=== PATIENT | male | born 1935 | race Caucasian/White ===

== ENCOUNTER 2016-06-08 10:51 | Day surgery (SDC) | payer MEDICARE, MEDICAID ==
--- NOTE | 2016-06-08 11:56 | RAD ---
ANKLE-LEFT 3 VIEW COMPARISON: None HISTORY: Patient slipped on the ice today. Left ankle pain. Initial encounter. FINDINGS: Views: Left ankle AP, mortise, lateral. Bones: Nondisplaced transverse fracture of the medial malleolus. Mildly displaced oblique fracture of the distal fibula Joints: Normal. Soft tissues: Swelling at the left ankle. IMPRESSION: Bimalleolar fracture of the left ankle, nondisplaced transverse at the medial malleolus, mildly displaced oblique fracture of the distal fibula diaphysis.
[2016-06-08] MEDS ORDERED: MAGNESIUM HYDROXIDE 30 ML UDCUP PO PRN (15:11)
[2016-06-08] MEDS ORDERED: SODIUM CHLORIDE 0.9% 100 ML IV PRN (15:11)
[2016-06-08] MEDS ORDERED: BLISTEX LIPSTICK 1 EACH TP PRN (15:11)
[2016-06-08] MEDS ORDERED: ACETAMINOPHEN 325 MG TABLET PO PRN (15:11)
[2016-06-08] MEDS ORDERED: MENTHOL/CETYLPYRD 1 EACH LOZENGE PO PRN (15:11)
[2016-06-08] MEDS ORDERED: BISACODYL 10 MG SUP PR PRN (15:11)
[2016-06-08] MEDS ORDERED: BISACODYL 5 MG TABLET.EC PO PRN (15:11)
[2016-06-08] MEDS ORDERED: NITROGLYCERIN 0.4 MG/TAB.SUBL BOT SL PRN (15:13)
[2016-06-08] MEDS ORDERED: ONDANSETRON 4 MG/2ML 2 ML VIAL IV PRN (15:13)
[2016-06-08 16:37] LABS: HEMATOCRIT 40.6 % (32.0-52.0); HEMOGLOBIN 13.5 gm/l (14.0-18.0); MEAN CELL VOLUME 89.8 fl (80.0-94.0); MEAN CORPUSCULAR HEMOGLOBIN 29.9 pg (27.0-31.0); MEAN CORPUSCULAR HGB CONC 33.3 g/dl (33.0-37.0); RED CELL DISTRIBUTION WIDTH 13.4 % (11.5-14.5)
[2016-06-08 16:44] VITALS: BMI 22.4
[2016-06-08 16:54] LABS: CALCIUM 9.4 mg/dL (8.6-10.3)
--- NOTE | 2016-06-08 17:31 | HP ---
DAVID AMAYA [id number] ADMIT DATE: 06/08/2016 CHIEF COMPLAINT: Ankle injury. 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 Today he was out in the [place] with his friend cutting wood when he slipped and fell, and suffered an ankle injury. He was brought to the emergency room for evaluation and found to have a bimalleolar fracture that was closed. He had no other injuries. He is feeling well otherwise. Given his underlying dementia it was felt it was unsafe to send him home. He has been referred to observation by the Hospitalist Service to facilitate an orthopedic consult and to facilitate appropriate placement. REVIEW OF SYSTEMS: No headache, no visual symptoms and no difficulty swallowing. No chest pain, shortness of breath or heart palpitations. No nausea, vomiting or diarrhea. No recent bowel or bladder dysfunction. No recent fevers or chills. PAST MEDICAL HISTORY: 1. Alzheimer's dementia. 2. Hypertension. 3. Hyperlipidemia. 4. Stable CAD. He has a history of a coronary artery bypass back in 06/2008. His last Lexiscan was just over a year ago in February of 2015 and was within normal limits, with an ejection fraction of 50%. 5. History of recurrent syncope that had been fully worked-up by both neurology and cardiology over the years. He has been taken-off most of this blood pressure medications and Beta blockers, with resolution. 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 7. History of hyperglycemia, but no diagnosis of diabetes. 8. Hyperlipidemia. PAST SURGICAL HISTORY: 1. CABG on 10/19/2008. 2. Surgery for a chainsaw injury to the left upper chest in the . SOCIAL HISTORY: He lives alone. He has a couple of friends who check in on him fairly frequently and who he cuts wood with. His living situation is described in the chart as "tenuous", though he has been fairly stable there for quite some time. He is exceedingly physically active, cutting large amounts of firewood as noted above. No alcohol, tobacco or drug use. ALLERGIES: Codeine. CURRENT MEDICATIONS: 1. Neurontin 300 mg by mouth at bedtime. 2. Aspirin 81 mg by mouth every day. 3. Atorvastatin 10 mg by mouth every day. 4. Isosorbide mononitrate ER 30 mg by mouth every day. 5. Nitroglycerin 0.4 mg sublingual every five minutes as needed for chest pain. CODE STATUS: DNR/DNI. OBJECTIVE: VITAL SIGNS: Vitals are stable. He is afebrile. GENERAL: A thin, spry, bright-eyed, elderly gentleman. He is sitting up in bed, alert and very talkative. He is in no distress whatsoever. HEENT: Normocephalic, atraumatic. TMs are clear. Extraocular muscles intact. Oropharynx is most. NECK: Supple. No JVD. LUNGS: Clear. HEART: Regular. ABDOMEN: Soft. EXTREMITIES: He is in a posterior splint on the left foot/ankle. NEUROVASCULAR: He is neurovascularly intact. Capillary refill is less than two seconds. There is a shallow abrasion over the right domínguez. Otherwise no injuries. No edema and no other skin lesions. LABS: None. ASSESSMENT: 1. Ground-level fall, with left-sided bimalleolar fracture, with no other injuries. 2. Underlying dementia appears stable at baseline. 3. Stable CAD, with no evidence of ACS. 4. Hypertension, not on any medications due to history of syncope. PLAN: I have referred him to observation. Orthopedics will consult when available. I anticipate that he will not require immediate surgery, though he may in the next week or so. Supportive care, with medications as needed for pain and nausea. We will let PT and OT evaluate him to see what kind of functional capability he will have and will search for the appropriate placement. DVT prophylaxis is not indicated. Further care is dictated by clinical course. cc: Dr. Leroy Shah
[2016-06-08 18:44] LABS: URINE BILIRUBIN NEGATIVE (NEGATIVE); URINE BLOOD NEGATIVE (NEGATIVE); URINE GLUCOSE (UA) NEGATIVE (NEGATIVE); URINE LEUKOCYTE ESTERASE NEGATIVE (NEGATIVE); URINE NITRITE NEGATIVE (NEGATIVE); URINE PROTEIN NEGATIVE (NEGATIVE); URINE UROBILINOGEN NORMAL (0-1 mg/dl)
[2016-06-08 18:45] LABS: URINE COLOR YELLOW
[2016-06-08 18:46] LABS: URINE APPEARANCE CLEAR
[2016-06-08] MEDS: GABAPENTIN 300 MG CAPSULE PO SCH (20:11)
[2016-06-08] MEDS: HYDROCODONE/ACETAMINOPHEN 5/325MG TABLET PO PRN (20:11)
--- NOTE | 2016-06-08 22:38 | PDOC36 ---
Provider Note Note: Please see full Ortho Consult which is dictated: Summary: 81yr old male with a bimalleolar frx admitted for social reasons. I spoke to the patient and medical team. I think the patient will need a surgery to stabilize his ankle. Ideally within 10 days he would have an ORIF of the fracture. However, the patient's social situation may make it more likely that he might have to stay in the hospital. If his swelling decreases and the patient stays long enough then potentially we could do his surgery on this admission. I recommend NWB on the LLE and ASA for DVT prophylaxis with follow- up in orthopaedic office in 1 week.
[2016-06-09] MEDS: HYDROCODONE/ACETAMINOPHEN 5/325MG TABLET PO PRN ×3 (01:41→20:45)
[2016-06-09] MEDS ORDERED: ASPIRIN (ENTERIC COATED) 81 MG TABLET.EC PO SCH ×2 (09:00→12:22)
[2016-06-09] MEDS: ISOSORBIDE MONONITRATE 30 MG TAB.SR PO SCH (09:55)
[2016-06-09] MEDS: ATORVASTATIN CALCIUM 10 MG TABLET PO SCH (09:55)
--- NOTE | 2016-06-09 12:34 | PDOC43 ---
- Subjective Chief Complaint: Left ankle injury C/o pain in left ankle, denies other symptoms. - Objective Vital Signs Temperature 97.4 F 06/09/16 07:50 Pulse Rate 82 06/09/16 07:50 Respiratory Rate 16 06/09/16 09:20 Blood Pressure 125/75 06/09/16 07:50 O2 Saturation by Pulse Oximetry 97 06/09/16 07:50 Oxygen Delivery Method Room Air Oxygen Flow Rate 0 Intake and Output 06/08/16 06/09/16 06/10/16 06:59 06:59 06:59 Intake Total 1400 Output Total 1775 Balance -375 General: Alert, Cooperative, Mild Distress, No Oriented x3 HEENT: Mucous membr. moist/pink Lungs: Clear to Auscultation Bilaterally Cardiovascular: Regular Rate and Rhythm Abdomen: Soft, Normal Bowel Sounds, No Tenderness, No Masses Extremities: Normal Pulses (right foot), Other (left ankle and foot splinted, great toe with brisk cap. refill), No Edema Skin: Normal Color Neurological: Normal Speech Laboratory 06/08/16 16:36 06/08/16 16:36 06/08/16 16:36 RBC 4.52 L Current Medications: Current meds reviewed in EMR. - Problems: Assessment/Plan (1) Ankle fracture, bimalleolar, closed Qualifiers: Encounter type: initial encounter Laterality: left Qualifier Code: (S82.842A) Displaced bimalleolar fracture of left lower leg, initial encounter for closed fracture Status: Acute Assessment/Plan: Will need ORIF when swelling goes down. (2) Dementia Qualifiers: Dementia type: Alzheimer's disease Alzheimer's disease onset: unspecified onset Dementia behavioral disturbance: without behavioral disturbance Qualifier Code: (G30.9) Alzheimer's disease, unspecified Status: Chronic Assessment/Plan: Very poor score on SLUMS exam today. Care management looking into guardianship. (3) CAD (coronary artery disease) Qualifiers: Coronary Disease-Associated Artery/Lesion type: [place] artery [place] vs. transplanted heart: [place] heart Associated angina: with unspecified angina Qualifier Code: (I25.119) Atherosclerotic heart disease of [place] coronary artery with unspecified angina pectoris Status: Chronic Assessment/Plan: Stable, no complaints. (4) HTN (hypertension) Status: Chronic Assessment/Plan: Stable. VTE Prophylaxis: mechanical and ASA. Disposition: Unclear if he will go to SNF/ICF or just remain here until he can have surgery on his ankle.
[2016-06-09] MEDS: GABAPENTIN 300 MG CAPSULE PO SCH (20:45)
[2016-06-10] MEDS: HYDROCODONE/ACETAMINOPHEN 5/325MG TABLET PO PRN (02:22)
[2016-06-10] MEDS: ISOSORBIDE MONONITRATE 30 MG TAB.SR PO SCH (10:40)
[2016-06-10] MEDS: ATORVASTATIN CALCIUM 10 MG TABLET PO SCH (10:40)
[2016-06-10] MEDS: ASPIRIN (ENTERIC COATED) 325 MG TABLET.EC PO SCH (11:06)
--- NOTE | 2016-06-10 12:56 | PDOC43 ---
- Subjective Chief Complaint: Left ankle injury Subjective: Reports Pain Tolerable, Reports Tolerating Diet Well, Denies Shortness of Breath, Denies Cough, Denies Chest Pain, Denies Fever - Objective Vital Signs Temperature 97.6 F 06/10/16 08:00 Pulse Rate 83 06/10/16 08:00 Respiratory Rate 18 06/10/16 10:40 Blood Pressure 138/97 06/10/16 08:00 O2 Saturation by Pulse Oximetry 95 06/10/16 08:00 Oxygen Delivery Method Room Air Oxygen Flow Rate 0 Intake and Output 06/09/16 06/10/16 06/11/16 06:59 06:59 06:59 Intake Total 1400 980 Output Total 1775 385 Balance -375 595 General: Alert, Cooperative, No Acute Distress HEENT: Mucous membr. moist/pink Lungs: Clear to Auscultation Bilaterally Cardiovascular: Regular Rate and Rhythm Abdomen: Soft, Normal Bowel Sounds, Non-Distended, No Tenderness Extremities: No Edema (except for area of left ankle fracture which is covered in NAKIA bandage with splint) Laboratory 06/08/16 16:36 06/08/16 16:36 Current Medications: Current meds reviewed in EMR. - Problems: Assessment/Plan (1) Ankle fracture, bimalleolar, closed Qualifiers: Encounter type: initial encounter Laterality: left Qualifier Code: (S82.842A) Displaced bimalleolar fracture of left lower leg, initial encounter for closed fracture Status: Acute Assessment/Plan: Will need ORIF when swelling goes down. (2) Dementia Qualifiers: Dementia type: Alzheimer's disease Alzheimer's disease onset: unspecified onset Dementia behavioral disturbance: without behavioral disturbance Qualifier Code: (G30.9) Alzheimer's disease, unspecified Status: Chronic Assessment/Plan: Very poor score on SLUMS exam yesterday(). Care management looking into guardianship. (3) CAD (coronary artery disease) Qualifiers: Coronary Disease-Associated Artery/Lesion type: [place] artery [place] vs. transplanted heart: [place] heart Associated angina: with unspecified angina Qualifier Code: (I25.119) Atherosclerotic heart disease of [place] coronary artery with unspecified angina pectoris Status: Chronic Assessment/Plan: Stable, no complaints. (4) HTN (hypertension) Qualifiers: Hypertension type: essential hypertension Qualifier Code: (I10) Essential (primary) hypertension Status: Chronic Assessment/Plan: Stable. VTE Prophylaxis: mechanical and ASA. Disposition: Unclear if he will go to SNF/ICF or just remain here until he can have surgery on his ankle.
[2016-06-10] MEDS: GABAPENTIN 300 MG CAPSULE PO SCH (20:07)
[2016-06-11] MEDS: HYDROCODONE/ACETAMINOPHEN 5/325MG TABLET PO PRN ×3 (05:03→23:03)
[2016-06-11] MEDS: ASPIRIN (ENTERIC COATED) 325 MG TABLET.EC PO SCH (08:52)
[2016-06-11] MEDS: ISOSORBIDE MONONITRATE 30 MG TAB.SR PO SCH (08:52)
[2016-06-11] MEDS: ATORVASTATIN CALCIUM 10 MG TABLET PO SCH (08:52)
--- NOTE | 2016-06-11 10:28 | PDOC43 ---
- Subjective Chief Complaint: Left ankle injury Subjective: Reports Pain Tolerable, Reports Tolerating Diet Well, Reports Other (no behavioral problems) - Objective Vital Signs Temperature 97.8 F 06/11/16 06:52 Pulse Rate 85 06/11/16 06:52 Respiratory Rate 18 06/11/16 08:07 Blood Pressure 146/89 06/11/16 06:52 O2 Saturation by Pulse Oximetry 96 06/11/16 06:52 Oxygen Delivery Method Room Air Oxygen Flow Rate 0 Intake and Output 06/10/16 06/11/16 06/12/16 06:59 06:59 06:59 Intake Total 980 1470 Output Total 385 53 Balance 595 1417 General: Alert, Cooperative, No Acute Distress HEENT: Mucous membr. moist/pink Lungs: Clear to Auscultation Bilaterally Cardiovascular: Regular Rate and Rhythm Abdomen: Soft, Normal Bowel Sounds, Non-Distended, No Tenderness Extremities: Other (left lower leg elevated and splinted(deferred to ortho() Laboratory 06/08/16 16:36 06/08/16 16:36 Current Medications: Current meds reviewed in EMR. - Problems: Assessment/Plan (1) Ankle fracture, bimalleolar, closed Qualifiers: Encounter type: initial encounter Laterality: left Qualifier Code: (S82.842A) Displaced bimalleolar fracture of left lower leg, initial encounter for closed fracture Status: Acute Assessment/Plan: Will need ORIF when swelling goes down. (2) Dementia Qualifiers: Dementia type: Alzheimer's disease Alzheimer's disease onset: unspecified onset Dementia behavioral disturbance: without behavioral disturbance Qualifier Code: (G30.9) Alzheimer's disease, unspecified Status: Chronic Assessment/Plan: Very poor score on SLUMS exam yesterday(). Care management looking into guardianship. (3) CAD (coronary artery disease) Qualifiers: Coronary Disease-Associated Artery/Lesion type: [place] artery [place] vs. transplanted heart: [place] heart Associated angina: with unspecified angina Qualifier Code: (I25.119) Atherosclerotic heart disease of [place] coronary artery with unspecified angina pectoris Status: Chronic Assessment/Plan: Stable, no complaints. (4) HTN (hypertension) Qualifiers: Hypertension type: essential hypertension Qualifier Code: (I10) Essential (primary) hypertension Status: Chronic Assessment/Plan: Stable. Consider beta finn if becomes elevated VTE Prophylaxis: mechanical and ASA. Disposition: Unclear if he will go to SNF/ICF or just remain here until he can have surgery on his ankle.
--- NOTE | 2016-06-11 18:53 | PDOC43 ---
- Subjective Findings: No new complaints, no new issues. Patient tolerating sling elevation of his left leg. Pain controlled. Subjective: Reports Flatus, Reports Pain Tolerable - Objective Vital Signs Temperature 98.1 F 06/11/16 16:02 Pulse Rate 91 06/11/16 16:02 Respiratory Rate 18 06/11/16 16:02 Blood Pressure 139/89 06/11/16 16:02 O2 Saturation by Pulse Oximetry 98 06/11/16 16:02 Oxygen Delivery Method Room Air Oxygen Flow Rate 0 Laboratory 06/08/16 16:36 06/08/16 16:36 06/11/16 11:40 POC Capillary Glucose 114 H Active Medication Orders Category Date Time Status Acetaminophen [Tylenol] Med 06/08/16 15:11 Active 650 mg PO Q6H PRN Aspirin (Enteric Coated) [Ecotrin] Med 06/10/16 10:45 Active 325 mg PO DAILY Atorvastatin Calcium [Lipitor] Med 06/09/16 09:00 Active 10 mg PO DAILY Gabapentin [Neurontin] Med 06/08/16 21:00 Active 300 mg PO BEDTIME Hydrocodone Bit/Acetaminophen [[place] 5/325] Med 06/11/16 16:14 Active 1 tab PO Q4H PRN Isosorbide Mononitrate [Imdur] Med 06/09/16 09:00 Active 30 mg PO DAILY Lip [place] [Blistex] Med 06/08/16 15:11 Active 1 each TP PRN PRN Magnesium Hydroxide [Milk of Magnesia] Med 06/08/16 15:11 Active 30 ml PO DAILY PRN Menthol/Cetylpyridinium [Cepacol] Med 06/08/16 15:11 Active 1 each PO PRN PRN Nitroglycerin [Nitrostat] Med 06/08/16 15:13 Active 0.4 mg SL Q5M PRN Ondansetron 4 mg/2ml Vial [Zofran] Med 06/08/16 15:13 Active 4 mg IV Q3H PRN Sodium Chloride 0.9% 100 ml Med 06/08/16 15:11 Active IV PRN Sodium Chloride 0.9% Flush [Normal Saline 10ml Flush] Med 06/08/16 15:11 Active 10 - 50 ml IV PRN PRN Sodium Chloride 0.9% Flush [Normal Saline 10ml Flush] Med 06/11/16 17:00 Active 10 ml IV Q8HR Intake and Output 06/09/16 06/10/16 06/11/16 23:59 23:59 23:59 Intake Total 9294 689 3230 Output Total 1095 68 Balance 815 113 5427 General: Afebrile, No Acute Distress HEENT: EOMI Lungs: Normal Air Movement Skin: Normal Color, Warm, Dry Neurological: Grossly Intact, No Oriented x 4 - Left Lower Extremity Incision: Dressing Clean/Dry/Intact Gross Sensation to Light Touch: Present: Deep Peroneal Nerve, Superficial Peroneal Nerve, Medial Plantar Nerve, Lateral Plantar Nerve, Sural Nerve, Saphenous Nerve Capillary Refill: < 3 Seconds - Problems (1) Ankle fracture, bimalleolar, closed Qualifiers: Encounter type: initial encounter Laterality: left Qualifier Code: (S82.842A) Displaced bimalleolar fracture of left lower leg, initial encounter for closed fracture Status: Acute Assessment/Plan: HD#3 for closed L shaggy ankle fracture 1. Physical Therapy: NWB LLE, up in stockinette sling whenever in bed 2. Pain Control: adequate on current meds 3. DVT Prophylaxis: per hospitalist 4. Disposition: likely will do ORIF this hospitalization, then d/c to SNF for rehab 5. Medical Issues: stable, hospitalist primary Young Jolly MD
[2016-06-11] MEDS: GABAPENTIN 300 MG CAPSULE PO SCH (23:02)
[2016-06-11] MEDS: QUETIAPINE FUMARATE 25 MG TABLET PO SCH (23:02)
[2016-06-12] MEDS ORDERED: IV START KIT ONE (00:19)
[2016-06-12 06:11] LABS: HEMATOCRIT 45.2 % (32.0-52.0); HEMOGLOBIN 14.8 gm/l (14.0-18.0); MEAN CORPUSCULAR HEMOGLOBIN 29.5 pg (27.0-31.0); MEAN CORPUSCULAR HGB CONC 32.7 g/dl (33.0-37.0); RED CELL DISTRIBUTION WIDTH 12.9 % (11.5-14.5)
[2016-06-12 06:36] LABS: CALCIUM 10.2 mg/dL (8.6-10.3)
[2016-06-12] MEDS: ATORVASTATIN CALCIUM 10 MG TABLET PO SCH (09:21)
[2016-06-12] MEDS: ASPIRIN (ENTERIC COATED) 325 MG TABLET.EC PO SCH (09:21)
[2016-06-12] MEDS: ISOSORBIDE MONONITRATE 30 MG TAB.SR PO SCH (09:21)
--- NOTE | 2016-06-12 10:50 | PDOC43 ---
- Subjective Findings: Pt seen his morning. He is sleeping and some what hard to wake. His nurse states he had a near syncopal episode earlier with PT. Pain seems manageable. Subjective: Reports Pain Tolerable, Denies Chest Pain, Denies Shortness of Breath, Denies Nausea, Denies Vomiting - Objective Vital Signs Temperature 97.6 F 06/12/16 07:55 Pulse Rate 87 06/12/16 10:10 Respiratory Rate 18 06/12/16 08:00 Blood Pressure 124/89 06/12/16 10:10 O2 Saturation by Pulse Oximetry 93 06/12/16 10:10 Oxygen Delivery Method Room Air Oxygen Flow Rate 0 Laboratory 06/12/16 05:30 06/12/16 05:30 06/12/16 06/11/16 05:30 11:40 MCHC 32.7 L Anion Gap 17 H Estimated GFR 58 L POC Capillary Glucose 114 H Active Medication Orders Category Date Time Status Acetaminophen [Tylenol] Med 06/08/16 15:11 Active 650 mg PO Q6H PRN Aspirin (Enteric Coated) [Ecotrin] Med 06/10/16 10:45 Active 325 mg PO DAILY Atorvastatin Calcium [Lipitor] Med 06/09/16 09:00 Active 10 mg PO DAILY Gabapentin [Neurontin] Med 06/08/16 21:00 Active 300 mg PO BEDTIME Hydrocodone Bit/Acetaminophen [[place] 5/325] Med 06/11/16 16:14 Active 1 tab PO Q4H PRN Isosorbide Mononitrate [Imdur] Med 06/09/16 09:00 Active 30 mg PO DAILY Lip [place] [Blistex] Med 06/08/16 15:11 Active 1 each TP PRN PRN Magnesium Hydroxide [Milk of Magnesia] Med 06/08/16 15:11 Active 30 ml PO DAILY PRN Menthol/Cetylpyridinium [Cepacol] Med 06/08/16 15:11 Active 1 each PO PRN PRN Nitroglycerin [Nitrostat] Med 06/08/16 15:13 Active 0.4 mg SL Q5M PRN Ondansetron 4 mg/2ml Vial [Zofran] Med 06/08/16 15:13 Active 4 mg IV Q3H PRN Quetiapine Fumarate [Seroquel] Med 06/11/16 21:45 Active 12.5 mg PO BEDTIME Sodium Chloride 0.9% 100 ml Med 06/08/16 15:11 Active IV PRN Sodium Chloride 0.9% Flush [Normal Saline 10ml Flush] Med 06/08/16 15:11 Active 10 - 50 ml IV PRN PRN Sodium Chloride 0.9% Flush [Normal Saline 10ml Flush] Med 06/11/16 17:00 Active 10 ml IV Q8HR Intake and Output 06/10/16 06/11/16 06/12/16 23:59 23:59 23:59 Intake Total 480 1570 100 Output Total 68 Balance 412 1570 100 General: Afebrile HEENT: Atraumatic Lungs: Normal Air Movement Abdomen: Non-Distended Skin: Normal Color Neurological: Other - Left Lower Extremity Incision: Erythema, Ecchymosis, Other (His splint is removed with the help of his nurse. He has a FX blister medial (intact). Lateral side skin intact. Swelling is mild) Gross Sensation to Light Touch: Present: Deep Peroneal Nerve, Superficial Peroneal Nerve Capillary Refill: < 3 Seconds Motion: Gentle toe motion without pain. Calf soft Nt - Problems (1) Ankle fracture, bimalleolar, closed Qualifiers: Encounter type: initial encounter Laterality: left Qualifier Code: (S82.842A) Displaced bimalleolar fracture of left lower leg, initial encounter for closed fracture Status: Acute Assessment/Plan: HD#4 for closed L shaggy ankle fracture 1. Physical Therapy: NWB LLE, up in stockinette sling whenever in bed 2. Pain Control: adequate on current meds. Limit narcotics secondary to somnolence 3. DVT Prophylaxis: per hospitalist 4. Disposition: likely will do ORIF Sunday or per Dr. Jolly, then d /c to SNF for rehab 5. Medical Issues: stable, hospitalist primary
--- NOTE | 2016-06-12 11:57 | CONS ---
David AMAYA [id number] : 1935 ORTHOPEDIC CONSULTATION DATE OF ADMISSION: June 08, 2016 CHIEF COMPLAINT: "I fell in hurt my left ankle." HISTORY OF PRESENT ILLNESS: The patient is an 81-year-old male who lives alone, but has dementia who was cutting some wood when he slipped and fell resulting in closed bimalleolar ankle fracture. The patient was splinted in the emergency room. The patient was ultimately admitted to medicine because of this and his inability to bear weight and due to his living situation. I was asked to see the patient in consultation. The patient has pain in his ankle. He does have some insight into what occurred that he broke his ankle. However since he lives alone he does not have a lot of resources to help care for him outside of the hospital setting. The patient notes that he has not had recent falls. He has never had any fevers, chills, pneumonia, or any other medical problems. PAST MEDICAL: Significant for: 1. High blood pressure. 2. Hyperlipidemia. 3. Coronary artery disease. Having a bypass back in June of 1999. His ejection fraction is currently 50%. 4. He has a history of recurrent syncope being worked up by both neurology and cardiology. 5. He has hearing noises secondary to noise damage. 6. Alzheimer's dementia. PAST SURGICAL HISTORY: Significant for: 1. CABG in September of 2008. 2. A chainsaw injury to his left chest in the . SOCIAL HISTORY: The patient lives alone. He has friends that check on them frequently who the cuts would with and then donates the wood to local [employer] He does not smoke cigarettes. He does not drink alcohol. ALLERGIES: CODEINE. MEDICATIONS: 1. Aspirin 81 mg by mouth every day. 2. Neurontin 300 mg by mouth every night. 3. Atorvastatin 10 mg by mouth every day. PHYSICAL EXAM: GENERAL: The patient is alert and oriented times one. His general appearance is that he is a thin man, very talkative and is oriented to person and place. He was not clear on the time. HEENT: Extraocular movements are intact bilaterally. NECK: Is supple. LUNGS: Clear to auscultation. HEART: Regular rate. EXTREMITIES: Focused exam of his left lower extremity demonstrates capillary refill of less than 2 seconds. The posterior splint is in place. He has a moderate amount of swelling. He has gross toe flexion and toe extension. IMAGING: X-rays demonstrated bimalleolar fracture with a minimally spaced medial malleolus and they displaced the lateral malleolus. ASSESSMENT AND PLAN: The patient is an 81-year-old male who was admitted for social reasons with a closed bimalleolar fracture. At this point in time the patient does have some swelling. I suggested that if he is be admitted for his leg to be elevated as much as possible. Potentially this will help decrease the swelling. If he has to stay here for couple of days potentially the patient could have the patient's ankle fixed with an open reduction internal fixation during the stay, otherwise the acuity of this my recommendation would be for the patient to elevate his leg and to follow up with us within a week. We will arrange orthopedic follow-up for the patient and I recommend nonweightbearing on this website. Job [id number] cc: Palmira Rudd
[2016-06-12] MEDS ORDERED: PUMP TUBING ONE (12:12)
[2016-06-12] MEDS: SODIUM CHLORIDE 0.9% 1,000 ML IV SCH (12:17)
--- NOTE | 2016-06-12 13:30 | PDOC43 ---
- Subjective Chief Complaint: Left ankle injury/bimalleolar fx Patient reports doing ok, "just sleeping" Pain control appears to be ok. Nursing staff reports pt was spitting earlier. - Objective Vital Signs Temperature 97.6 F 06/12/16 07:55 Pulse Rate 87 06/12/16 10:10 Respiratory Rate 18 06/12/16 08:00 Blood Pressure 124/89 06/12/16 10:10 O2 Saturation by Pulse Oximetry 93 06/12/16 10:10 Oxygen Delivery Method Room Air Oxygen Flow Rate 0 Vital Signs Last 12 Hours Temp Pulse Resp BP Pulse Ox 06/12/16 10:10 87 124/89 93 06/12/16 09:55 124/89 93 06/12/16 08:00 18 06/12/16 07:55 97.6 F 80 18 136/99 97 06/12/16 02:00 16 Intake and Output 06/10/16 06/11/16 06/12/16 23:59 23:59 23:59 Intake Total 480 1570 100 Output Total 68 Balance 412 1570 100 General: Other (sleeping, but awakens normally.) HEENT: Atraumatic Lungs: Clear to Auscultation Bilaterally, Normal Air Movement Cardiovascular: Regular Rate and Rhythm Abdomen: Soft, Normal Bowel Sounds, Non-Distended, No Tenderness, No Rebounding , No Involuntary Guarding Extremities: Other (Left leg wrapped, elevated.) Neurological: Normal Speech Psych/Mental Status: Other (reported on SLUMS.) Laboratory 06/12/16 05:30 06/12/16 05:30 06/12/16 05:30 MCHC 32.7 L Anion Gap 17 H Estimated GFR 58 L Current Medications: Current meds reviewed in EMR. Active Medications Acetaminophen (Tylenol) 650 mg PO Q6H PRN PRN Reason: Pain or Temperature > 100.5 F Acetaminophen/Hydrocodone Bitart ([place] 5/325) 1 tab PO Q4H PRN PRN Reason: Pain Last Admin: 06/11/16 23:03 Dose: 1 tab Aspirin (Ecotrin) 325 mg PO DAILY [facility] Last Admin: 06/12/16 09:21 Dose: 325 mg Atorvastatin Calcium (Lipitor) 10 mg PO DAILY [facility] Last Admin: 06/12/16 09:21 Dose: 10 mg Benzocaine/Menthol (Cepacol) 1 each PO PRN PRN PRN Reason: Sore Throat Gabapentin (Neurontin) 300 mg PO BEDTIME [facility] Last Admin: 06/11/16 23:02 Dose: 300 mg Sodium Chloride (Sodium Chloride 0.9%) 100 mls @ 25 mls/hr IV PRN PRN PRN Reason: Flush Sodium Chloride (Sodium Chloride 0.9%) 1,000 mls @ 25 mls/hr IV .Q24H [facility] Last Admin: 06/12/16 12:17 Dose: 25 mls/hr Isosorbide Mononitrate (Imdur) 30 mg PO DAILY [facility] Last Admin: 06/12/16 09:21 Dose: 30 mg Magnesium Hydroxide (Milk Of Magnesia) 30 ml PO DAILY PRN PRN Reason: Constipation Nitroglycerin (Nitrostat) 0.4 mg SL Q5M PRN PRN Reason: Chest Pain Ondansetron HCl (Zofran) 4 mg IV Q3H PRN PRN Reason: Nausea/Vomiting Petrolatum/Paraffin/Mineral Oil (Blistex) 1 each TP PRN PRN PRN Reason: Dry and/or chapped lips Quetiapine Fumarate (Seroquel) 12.5 mg PO BEDTIME [facility] Last Admin: 06/11/16 23:02 Dose: 12.5 mg Sodium Chloride (Normal Saline 10ml Flush) 10 - 50 ml IV PRN PRN PRN Reason: IV Flush Last Admin: 06/12/16 12:17 Dose: 10 ml Sodium Chloride (Normal Saline 10ml Flush) 10 ml IV Q8HR [facility] Last Admin: 06/12/16 09:21 Dose: 10 ml - Problems: Assessment/Plan (1) Ankle fracture, bimalleolar, closed Qualifiers: Encounter type: initial encounter Laterality: left Qualifier Code: (S82.842A) Displaced bimalleolar fracture of left lower leg, initial encounter for closed fracture Status: Acute Assessment/Plan: Will need ORIF when swelling goes down. Ortho had indicated poss Wed or Th. Pain control appears good currently. (2) Dementia Qualifiers: Dementia type: Alzheimer's disease Alzheimer's disease onset: unspecified onset Dementia behavioral disturbance: without behavioral disturbance Qualifier Code: (G30.9) Alzheimer's disease, unspecified Status: Chronic Assessment/Plan: Very poor score on SLUMS exam (). Care management looking into guardianship. (3) CAD (coronary artery disease) Qualifiers: Coronary Disease-Associated Artery/Lesion type: [place] artery [place] vs. transplanted heart: [place] heart Associated angina: with unspecified angina Qualifier Code: (I25.119) Atherosclerotic heart disease of [place] coronary artery with unspecified angina pectoris Status: Chronic Assessment/Plan: Stable, no complaints. (4) HTN (hypertension) Qualifiers: Hypertension type: essential hypertension Qualifier Code: (I10) Essential (primary) hypertension Status: Chronic Assessment/Plan: Stable. Consider beta finn if becomes elevated. VTE Prophylaxis: mechanical and ASA. Disposition: Anticipating to remain here until he can have surgery on his ankle, later this week
[2016-06-12] MEDS: HYDROCODONE/ACETAMINOPHEN 5/325MG TABLET PO PRN (18:35)
[2016-06-12] MEDS: GABAPENTIN 300 MG CAPSULE PO SCH ×2 (20:48→21:02)
[2016-06-12] MEDS: QUETIAPINE FUMARATE 25 MG TABLET PO SCH ×2 (20:49→21:02)
[2016-06-13] MEDS: HYDROCODONE/ACETAMINOPHEN 5/325MG TABLET PO PRN ×2 (00:38→22:45)
[2016-06-13] MEDS: ATORVASTATIN CALCIUM 10 MG TABLET PO SCH (09:18)
[2016-06-13] MEDS: ISOSORBIDE MONONITRATE 30 MG TAB.SR PO SCH (09:18)
[2016-06-13] MEDS: ASPIRIN (ENTERIC COATED) 325 MG TABLET.EC PO SCH (09:18)
[2016-06-13] MEDS: SODIUM CHLORIDE 0.9% 1,000 ML IV SCH ×2 (11:10→21:54)
--- NOTE | 2016-06-13 11:28 | PDOC43 ---
- Subjective Findings: Pt seen today more awake than yesterday. No new complaints. Not having much pain unless the leg is moved. Subjective: Reports Pain Tolerable, Denies Chest Pain, Denies Shortness of Breath, Denies Nausea, Denies Vomiting, Denies Fever - Objective Vital Signs Temperature 98.4 F 06/13/16 08:38 Pulse Rate 83 06/13/16 08:38 Respiratory Rate 20 06/13/16 08:38 Blood Pressure 155/97 06/13/16 08:38 O2 Saturation by Pulse Oximetry 97 06/13/16 08:38 Oxygen Delivery Method Room Air Oxygen Flow Rate 0 Laboratory 06/12/16 05:30 06/12/16 05:30 Active Medication Orders Category Date Time Status Acetaminophen [Tylenol] Med 06/08/16 15:11 Active 650 mg PO Q6H PRN Aspirin (Enteric Coated) [Ecotrin] Med 06/10/16 10:45 Active 325 mg PO DAILY Atorvastatin Calcium [Lipitor] Med 06/09/16 09:00 Active 10 mg PO DAILY Gabapentin [Neurontin] Med 06/08/16 21:00 Active 300 mg PO BEDTIME Hydrocodone Bit/Acetaminophen [[place] 5/325] Med 06/11/16 16:14 Active 1 tab PO Q4H PRN Isosorbide Mononitrate [Imdur] Med 06/09/16 09:00 Active 30 mg PO DAILY Lip [place] [Blistex] Med 06/08/16 15:11 Active 1 each TP PRN PRN Magnesium Hydroxide [Milk of Magnesia] Med 06/08/16 15:11 Active 30 ml PO DAILY PRN Menthol/Cetylpyridinium [Cepacol] Med 06/08/16 15:11 Active 1 each PO PRN PRN Nitroglycerin [Nitrostat] Med 06/08/16 15:13 Active 0.4 mg SL Q5M PRN Ondansetron 4 mg/2ml Vial [Zofran] Med 06/08/16 15:13 Active 4 mg IV Q3H PRN Quetiapine Fumarate [Seroquel] Med 06/11/16 21:45 Active 12.5 mg PO BEDTIME Sodium Chloride 0.9% 1,000 ml Med 06/12/16 11:40 Active IV 25 mls/hr Sodium Chloride 0.9% 100 ml Med 06/08/16 15:11 Active IV PRN Sodium Chloride 0.9% Flush [Normal Saline 10ml Flush] Med 06/08/16 15:11 Active 10 - 50 ml IV PRN PRN Sodium Chloride 0.9% Flush [Normal Saline 10ml Flush] Med 06/11/16 17:00 Active 10 ml IV Q8HR Intake and Output 06/11/16 06/12/16 06/13/16 23:59 23:59 23:59 Intake Total 1570 484 457 Output Total 3 126 Balance 1570 481 331 General: Afebrile HEENT: Atraumatic Lungs: Normal Air Movement Abdomen: Soft, Non-Distended Skin: Normal Color Neurological: Alert - Left Lower Extremity Incision: Ecchymosis, Other (Swelling continues to improve.) Motor: Extensor Hallucis Longus: 3/5, Tibialis Anterior: 3/5, Gastrocnemius: 3/5 , Peroneals: 3/5, Quadriceps: 2/5 Gross Sensation to Light Touch: Present: Deep Peroneal Nerve, Superficial Peroneal Nerve Capillary Refill: < 3 Seconds Motion: Calf soft NT Knee rom with mild c/o of ankle pain - Problems (1) Ankle fracture, bimalleolar, closed Qualifiers: Encounter type: initial encounter Laterality: left Qualifier Code: (S82.842A) Displaced bimalleolar fracture of left lower leg, initial encounter for closed fracture Status: Acute Assessment/Plan: HD#5 for closed L shaggy ankle fracture 1. Physical Therapy: NWB LLE, up in stockinette sling whenever in bed 2. Pain Control: adequate on current meds. Limit narcotics secondary to somnolence 3. DVT Prophylaxis: per hospitalist 4. Disposition: Plan for ORIF Sunday or per Dr. Jolly, then d/c to SNF for rehab 5. Medical Issues: stable, hospitalist primary
--- NOTE | 2016-06-13 13:36 | PDOC43 ---
- Subjective Chief Complaint: Left ankle injury/bimalleolar fx Subjective: Reports Pain Tolerable, Reports Tolerating Diet Well, Denies Fever - Objective Vital Signs Temperature 98.4 F 06/13/16 08:38 Pulse Rate 83 06/13/16 08:38 Respiratory Rate 20 06/13/16 08:38 Blood Pressure 155/97 06/13/16 08:38 O2 Saturation by Pulse Oximetry 97 06/13/16 08:38 Oxygen Delivery Method Room Air Oxygen Flow Rate 0 Intake and Output 06/12/16 06/13/16 06/14/16 06:59 06:59 06:59 Intake Total 620 841 40 Output Total 3 126 Balance 620 838 -86 General: Alert, Cooperative, No Acute Distress HEENT: Mucous membr. moist/pink Lungs: Clear to Auscultation Bilaterally Cardiovascular: Regular Rate and Rhythm Abdomen: Soft, Normal Bowel Sounds, Non-Distended, No Tenderness Extremities: Edema (in left leg improving, has splint on left lower leg) Skin: Warm, Dry, Intact Laboratory 06/12/16 05:30 06/12/16 05:30 Current Medications: Current meds reviewed in EMR. - Problems: Assessment/Plan (1) Ankle fracture, bimalleolar, closed Qualifiers: Encounter type: initial encounter Laterality: left Qualifier Code: (S82.842A) Displaced bimalleolar fracture of left lower leg, initial encounter for closed fracture Status: Acute Assessment/Plan: Will need ORIF when swelling goes down. Ortho had indicated poss Wed or Th. Pain control appears good currently. (2) Dementia Qualifiers: Dementia type: Alzheimer's disease Alzheimer's disease onset: unspecified onset Dementia behavioral disturbance: without behavioral disturbance Qualifier Code: (G30.9) Alzheimer's disease, unspecified Status: Chronic Assessment/Plan: Very poor score on SLUMS exam (). Care management looking into SNF placement (3) CAD (coronary artery disease) Qualifiers: Coronary Disease-Associated Artery/Lesion type: [place] artery [place] vs. transplanted heart: [place] heart Associated angina: with unspecified angina Qualifier Code: (I25.119) Atherosclerotic heart disease of [place] coronary artery with unspecified angina pectoris Status: Chronic Assessment/Plan: Stable, no complaints. (4) HTN (hypertension) Qualifiers: Hypertension type: essential hypertension Qualifier Code: (I10) Essential (primary) hypertension Status: Chronic Assessment/Plan: Some elevation-start atenolol VTE Prophylaxis: mechanical and ASA. Disposition: Anticipating to remain here until he can have surgery on his ankle, later this week
[2016-06-13] MEDS: ATENOLOL 25 MG TABLET PO SCH (15:11)
[2016-06-13] MEDS: GABAPENTIN 300 MG CAPSULE PO SCH (22:44)
[2016-06-13] MEDS: QUETIAPINE FUMARATE 25 MG TABLET PO SCH (22:48)
[2016-06-13] MEDS ORDERED: SODIUM CHLORIDE 0.9% FLUSH 10 ML ONE (23:04)
[2016-06-13] MEDS ORDERED: IV START KIT ONE (23:04)
[2016-06-14] MEDS: HYDROCODONE/ACETAMINOPHEN 5/325MG TABLET PO PRN ×3 (03:27→22:25)
[2016-06-14] MEDS: SODIUM CHLORIDE 0.9% 1,000 ML IV SCH ×3 (06:35→22:25)
--- NOTE | 2016-06-14 06:59 | PDOC43 ---
- Subjective Chief Complaint: Left ankle injury/bimalleolar fx Subjective: Reports Pain Tolerable, Reports Tolerating Diet Well, Denies Fever - Objective Vital Signs Temperature 98.4 F 06/14/16 01:45 Pulse Rate 92 06/14/16 02:15 Respiratory Rate 16 06/14/16 02:00 Blood Pressure 161/93 06/14/16 02:15 O2 Saturation by Pulse Oximetry 100 06/14/16 02:15 Oxygen Delivery Method Room Air Oxygen Flow Rate 0 Intake and Output 06/12/16 06/13/16 06/14/16 06:59 06:59 06:59 Intake Total 620 841 532 Output Total 3 126 Balance 620 838 406 General: Alert, Cooperative, No Acute Distress HEENT: Mucous membr. moist/pink Lungs: Clear to Auscultation Bilaterally Cardiovascular: Regular Rate and Rhythm Abdomen: Soft, Normal Bowel Sounds, Non-Distended, No Tenderness Extremities: Edema (in left leg improving but remains splinted), Normal Cap Refill Laboratory 06/12/16 05:30 06/12/16 05:30 Current Medications: Current meds reviewed in EMR. - Problems: Assessment/Plan (1) Ankle fracture, bimalleolar, closed Qualifiers: Encounter type: initial encounter Laterality: left Qualifier Code: (S82.842A) Displaced bimalleolar fracture of left lower leg, initial encounter for closed fracture Status: Acute Assessment/Plan: Will need ORIF when swelling goes down. Ortho had indicated poss later today or Sunday Pain control appears good currently. (2) Dementia Qualifiers: Dementia type: Alzheimer's disease Alzheimer's disease onset: unspecified onset Dementia behavioral disturbance: without behavioral disturbance Qualifier Code: (G30.9) Alzheimer's disease, unspecified Status: Chronic Assessment/Plan: Very poor score on SLUMS exam (). Care management looking into SNF placement (3) CAD (coronary artery disease) Qualifiers: Coronary Disease-Associated Artery/Lesion type: [place] artery [place] vs. transplanted heart: [place] heart Associated angina: with unspecified angina Qualifier Code: (I25.119) Atherosclerotic heart disease of [place] coronary artery with unspecified angina pectoris Status: Chronic Assessment/Plan: Stable, no complaints. (4) HTN (hypertension) Qualifiers: Hypertension type: essential hypertension Qualifier Code: (I10) Essential (primary) hypertension Status: Chronic Assessment/Plan: Some elevation-started atenolol on 06/13 VTE Prophylaxis: mechanical and ASA. Disposition: Anticipating to remain here until he can have surgery on his ankle, later this week
[2016-06-14] MEDS: ISOSORBIDE MONONITRATE 30 MG TAB.SR PO SCH (08:25)
[2016-06-14] MEDS: ATENOLOL 25 MG TABLET PO SCH (08:25)
[2016-06-14] MEDS: ATORVASTATIN CALCIUM 10 MG TABLET PO SCH (13:52)
[2016-06-14] MEDS: ASPIRIN (ENTERIC COATED) 325 MG TABLET.EC PO SCH (13:52)
[2016-06-14] MEDS ORDERED: SODIUM CHLORIDE 0.9% FLUSH 10 ML ONE (20:33)
[2016-06-14] MEDS ORDERED: IV START KIT ONE ×2 (20:33→23:13)
[2016-06-14] MEDS: GABAPENTIN 300 MG CAPSULE PO SCH (22:25)
[2016-06-14] MEDS: QUETIAPINE FUMARATE 25 MG TABLET PO SCH (22:25)
[2016-06-15] MEDS: SODIUM CHLORIDE 0.9% 1,000 ML IV SCH ×3 (04:09→20:40)
[2016-06-15] MEDS: HYDROCODONE/ACETAMINOPHEN 5/325MG TABLET PO PRN ×2 (04:09→20:40)
[2016-06-15] MEDS: ATENOLOL 25 MG TABLET PO SCH (08:29)
[2016-06-15] MEDS: ISOSORBIDE MONONITRATE 30 MG TAB.SR PO SCH (08:29)
--- NOTE | 2016-06-15 08:45 | PDOC43 ---
- Subjective Chief Complaint: Left ankle injury/bimalleolar fx Patient reported to be fairly active last night, but not needing 1:1 or special medication. This am, resting with eyes closed, no c/o. - Objective Vital Signs Temperature 97.6 F 06/15/16 07:21 Pulse Rate 59 06/15/16 07:21 Respiratory Rate 18 06/15/16 07:21 Blood Pressure 185/69 06/15/16 07:21 O2 Saturation by Pulse Oximetry 99 06/15/16 07:21 Oxygen Delivery Method Room Air Oxygen Flow Rate 0 Vital Signs Last 12 Hours Temp Pulse Resp BP Pulse Ox 06/15/16 07:21 97.6 F 59 18 185/69 99 06/15/16 02:00 16 06/15/16 01:44 97.5 F 58 16 154/70 100 Intake and Output 06/13/16 06/14/16 06/15/16 23:59 23:59 23:59 Intake Total 989 1876 683 Output Total 126 583.64 297.76 Balance 863 1292.36 385.24 General: Cooperative, No Acute Distress HEENT: Atraumatic Lungs: Clear to Auscultation Bilaterally Cardiovascular: Regular Rate and Rhythm Abdomen: Soft, Normal Bowel Sounds, Non-Distended Extremities: Other (L ankle in sling.), No Edema Skin: Normal Color Psych/Mental Status: Other (sleepy) Laboratory 06/12/16 05:30 06/12/16 05:30 Current Medications: Current meds reviewed in EMR. Active Medications Generic Name Dose Route Start Last Admin Trade Name Freq PRN Reason Stop Dose Admin Acetaminophen 650 mg 06/08/16 15:11 06/13/16 15:21 Tylenol PO 650 mg Q6H PRN Administration Pain or Temperature > 100.5 F Acetaminophen/Hydrocodone Bitart 1 tab 06/11/16 16:14 06/15/16 04:09 [place] 5/325 PO 1 tab Q4H PRN Administration Pain Aspirin 325 mg 06/10/16 10:45 06/14/16 13:52 Ecotrin PO 325 mg DAILY [facility] Administration Atenolol 25 mg 06/13/16 13:45 06/15/16 08:29 Tenormin PO 25 mg DAILY [facility] Administration Atorvastatin Calcium 10 mg 06/09/16 09:00 06/14/16 13:52 Lipitor PO 10 mg DAILY [facility] Administration Benzocaine/Menthol 1 each 06/08/16 15:11 Cepacol PO PRN PRN Sore Throat Gabapentin 300 mg 06/08/16 21:00 06/14/16 22:25 Neurontin PO 300 mg BEDTIME [facility] Administration Sodium Chloride 100 mls @ 25 mls/hr 06/08/16 15:11 Sodium Chloride 0.9% IV PRN PRN Flush Sodium Chloride 1,000 mls @ 100 mls/hr 06/13/16 21:48 06/15/16 04:09 Sodium Chloride 0.9% IV Not Given .Q10H [facility] Isosorbide Mononitrate 30 mg 06/09/16 09:00 06/15/16 08:29 Imdur PO 30 mg DAILY [facility] Administration Magnesium Hydroxide 30 ml 06/08/16 15:11 Milk Of Magnesia PO DAILY PRN Constipation Nitroglycerin 0.4 mg 06/08/16 15:13 Nitrostat SL Q5M PRN Chest Pain Ondansetron HCl 4 mg 06/08/16 15:13 Zofran IV Q3H PRN Nausea/Vomiting Petrolatum/Paraffin/Mineral Oil 1 each 06/08/16 15:11 Blistex TP PRN PRN Dry and/or chapped lips Quetiapine Fumarate 12.5 mg 06/11/16 21:45 06/14/16 22:25 Seroquel PO 12.5 mg BEDTIME [facility] Administration Sodium Chloride 10 - 50 ml 06/08/16 15:11 06/12/16 12:17 Normal Saline 10ml Flush IV 10 ml PRN PRN Administration IV Flush Sodium Chloride 10 ml 06/11/16 17:00 06/15/16 02:16 Normal Saline 10ml Flush IV Not Given Q8HR [facility] - Problems: Assessment/Plan (1) Ankle fracture, bimalleolar, closed Qualifiers: Encounter type: initial encounter Laterality: left Qualifier Code: (S82.842A) Displaced bimalleolar fracture of left lower leg, initial encounter for closed fracture Status: Acute Assessment/Plan: Will need ORIF when swelling goes down. Appreciate Ortho care, hope to repair soon. Pain control appears good currently. (2) Dementia Qualifiers: Dementia type: Alzheimer's disease Alzheimer's disease onset: unspecified onset Dementia behavioral disturbance: without behavioral disturbance Qualifier Code: (G30.9) Alzheimer's disease, unspecified Status: Chronic Assessment/Plan: Very poor score on SLUMS exam (). Care management looking into SNF placement (3) CAD (coronary artery disease) Qualifiers: Coronary Disease-Associated Artery/Lesion type: [place] artery [place] vs. transplanted heart: [place] heart Associated angina: with unspecified angina Qualifier Code: (I25.119) Atherosclerotic heart disease of [place] coronary artery with unspecified angina pectoris Status: Chronic Assessment/Plan: Stable, no complaints. (4) HTN (hypertension) Qualifiers: Hypertension type: essential hypertension Qualifier Code: (I10) Essential (primary) hypertension Status: Chronic Assessment/Plan: Some elevation-started atenolol on 06/13; still with some elevated BP, consider revision of med; However, some of this elevation may be due to pain from ankle fx. VTE Prophylaxis: mechanical and ASA. Disposition: Anticipating to remain here until he can have surgery on his ankle, later this week
[2016-06-15] MEDS: ATORVASTATIN CALCIUM 10 MG TABLET PO SCH (09:00)
[2016-06-15] MEDS: ASPIRIN (ENTERIC COATED) 325 MG TABLET.EC PO SCH (09:00)
--- NOTE | 2016-06-15 12:48 | PDOC43 ---
- Subjective Findings: S/P Left Ankle Bimalleolar Fracture. Waiting for decreased ankle swelling to proceed with ORIF. Patient reports no new complaint this morning. Subjective: Reports Pain Tolerable, Denies Chest Pain, Denies Shortness of Breath, Denies Nausea - Objective Vital Signs Temperature 97.6 F 06/15/16 07:21 Pulse Rate 59 06/15/16 07:21 Respiratory Rate 18 06/15/16 08:00 Blood Pressure 185/69 06/15/16 07:21 O2 Saturation by Pulse Oximetry 99 06/15/16 07:21 Oxygen Delivery Method Room Air Oxygen Flow Rate 0 Laboratory 06/12/16 05:30 06/12/16 05:30 Active Medication Orders Category Date Time Status Acetaminophen [Tylenol] Med 06/08/16 15:11 Active 650 mg PO Q6H PRN Aspirin (Enteric Coated) [Ecotrin] Med 06/10/16 10:45 Active 325 mg PO DAILY Atenolol [Tenormin] Med 06/13/16 13:45 Active 25 mg PO DAILY Atorvastatin Calcium [Lipitor] Med 06/09/16 09:00 Active 10 mg PO DAILY Gabapentin [Neurontin] Med 06/08/16 21:00 Active 300 mg PO BEDTIME Hydrocodone Bit/Acetaminophen [[place] 5/325] Med 06/11/16 16:14 Active 1 tab PO Q4H PRN Isosorbide Mononitrate [Imdur] Med 06/09/16 09:00 Active 30 mg PO DAILY Lip [place] [Blistex] Med 06/08/16 15:11 Active 1 each TP PRN PRN Magnesium Hydroxide [Milk of Magnesia] Med 06/08/16 15:11 Active 30 ml PO DAILY PRN Menthol/Cetylpyridinium [Cepacol] Med 06/08/16 15:11 Active 1 each PO PRN PRN Nitroglycerin [Nitrostat] Med 06/08/16 15:13 Active 0.4 mg SL Q5M PRN Ondansetron 4 mg/2ml Vial [Zofran] Med 06/08/16 15:13 Active 4 mg IV Q3H PRN Quetiapine Fumarate [Seroquel] Med 06/11/16 21:45 Active 12.5 mg PO BEDTIME Sodium Chloride 0.9% 1,000 ml Med 06/13/16 21:48 Active IV 100 mls/hr Sodium Chloride 0.9% 100 ml Med 06/08/16 15:11 Active IV PRN Sodium Chloride 0.9% Flush [Normal Saline 10ml Flush] Med 06/08/16 15:11 Active 10 - 50 ml IV PRN PRN Sodium Chloride 0.9% Flush [Normal Saline 10ml Flush] Med 06/11/16 17:00 Active 10 ml IV Q8HR Intake and Output 06/13/16 06/14/16 06/15/16 23:59 23:59 23:59 Intake Total 989 1876 683 Output Total 126 583.64 297.76 Balance 863 1292.36 385.24 General: Afebrile Lungs: Normal Air Movement Skin: Normal Color, Warm, Dry - Left Lower Extremity Incision: Dressing Clean/Dry/Intact Motor: Extensor Hallucis Longus: 5/5, Tibialis Anterior: 5/5 Gross Sensation to Light Touch: Present: Deep Peroneal Nerve, Superficial Peroneal Nerve - Problems (1) Ankle fracture, bimalleolar, closed Qualifiers: Encounter type: initial encounter Laterality: left Qualifier Code: (S82.842A) Displaced bimalleolar fracture of left lower leg, initial encounter for closed fracture Status: Acute Assessment/Plan: HD#5 for closed L shaggy ankle fracture 1. Physical Therapy: NWB LLE, up in stockinette sling whenever in bed 2. Pain Control: adequate on current meds. Limit narcotics secondary to somnolence 3. DVT Prophylaxis: per hospitalist 4. Disposition: Plan for ORIF Sunday or per Dr. Jolly, then d/c to SNF for rehab 5. Medical Issues: stable, hospitalist primary - Additional Comments 1. Physical Therapy: No Change to previous order. Continue to elevate left foot/ ankle in bed. 2. Pain Control: Multimodal pain control as needed. 3. DVT Prophylaxis: ASA 325mg daily. 4. Disposition: NPO after this morning breakfast, no later than 9am. Plan for this afternoon left ankle surgery with Dr. Jolly. 5. Medical Issues: No new problem.
[2016-06-15] MEDS ORDERED: LACTATED RINGERS 1,000 ML ONE (13:57)
[2016-06-15] MEDS ORDERED: NERVE BLOCK PROCEDURAL TRAY 1 EACH ONE (14:28)
[2016-06-15] MEDS ORDERED: ROPIVACAINE 0.5% 30 ML VIAL ONE (14:29)
[2016-06-15] MEDS ORDERED: IV START KIT ONE (14:34)
[2016-06-15] MEDS ORDERED: MIDAZOLAM HCL 1 MG/ML 2ML VIAL ONE (14:35)
[2016-06-15] MEDS ORDERED: CEFAZOLIN SODIUM 2 GRAM PREMIX 100 ML IV ONE (15:06)
[2016-06-15] MEDS ORDERED: SPINAL PROCEDURAL TRAY 1 EACH ONE (15:11)
[2016-06-15] MEDS ORDERED: BUPIVACAINE 0.5% (PRES FREE) 30 ML VIAL ONE (15:23)
[2016-06-15] MEDS ORDERED: CEFAZOLIN SODIUM 2 GRAM DUPLEX 2 G in Premix (D5W) 50 ml 1 EACH IV PRN (15:30)
[2016-06-15] MEDS ORDERED: PROPOFOL 20 ML IV ONE (15:37)
[2016-06-15] MEDS ORDERED: PROMETHAZINE HCL 25 MG/ML VIAL IM PRN (16:04)
[2016-06-15] MEDS ORDERED: ONDANSETRON 4 MG/2ML 2 ML VIAL IV PRN (16:04)
[2016-06-15] MEDS ORDERED: FENTANYL 100 MCG/2 ML VIAL IV PRN (16:04)
[2016-06-15] MEDS ORDERED: MORPHINE SULFATE 4 MG/ML SYRINGE IV PRN (16:04)
[2016-06-15] MEDS ORDERED: LACTATED RINGERS 1,000 ML IV SCH (16:15)
--- NOTE | 2016-06-15 16:31 | RAD ---
EXAMINATION: ANKLE LIMITED LEFT 1-2 VIEWS CLINICAL INDICATION: ORIF bimalleolar fracture. Fluoroscopic assistance. COMPARISON: 06/08/2016. FINDINGS: Fluoroscopy assistance was provided. There are 26.1 seconds of fluoroscopy time. 2 images were generated. Patient status post ORIF bimalleolar fracture. There are 2 cannulated screws bridging the medial malleolus fracture which is anatomically aligned. There is a compression plate and in anterior posterior bridging screw involving the distal fibular fracture also exhibiting anatomic alignment. IMPRESSION: Fluoroscopy assistance was provided. Currently there is satisfactory immediate postoperative appearance ORIF bimalleolar fracture.
--- NOTE | 2016-06-15 16:44 | PCMBPN ---
Brief Post Op Note: Date of Procedure: 06/15/16 Start Time: 1530 Preoperative Diagnosis: 1. left bimalleolar ankle fracture Postoperative Diagnosis: 1. Same Procedure: left ankle ORIF Surgeon: Young Jolly MD Assist: DOMINGA Bowling Anesthesia: Jose Roberts Findings: as above Condition: stable to PACU Complications: none IV Fluids: 1000 mLs of LR Urine Output: 0 mLs Estimated Blood Loss: 5 mLs Tourniquet Time: 45 min at 250 mm Hg Specimens: none Implants: [employer] 4-hole distal fibular plate with 2.7mm locking screws distally and 3.5mm cortical screws proximally; 3.5mm lag screw laterally; 4.0 cannulated screws x 2 in the medial malleolus Drains: none Young Jolly MD
[2016-06-15] MEDS ORDERED: GLYCOPYRROLATE 0.2 MG/ML 1ML VIAL ONE (17:27)
[2016-06-15] MEDS ORDERED: BLISTEX LIPSTICK 1 EACH TP PRN (17:48)
[2016-06-15] MEDS ORDERED: MENTHOL/CETYLPYRD 1 EACH LOZENGE PO PRN (17:48)
[2016-06-15] MEDS: QUETIAPINE FUMARATE 25 MG TABLET PO SCH (20:41)
[2016-06-15] MEDS: GABAPENTIN 300 MG CAPSULE PO SCH (20:47)
[2016-06-16] MEDS ORDERED: HYDROMORPHONE HCL 1 MG/ML SYRINGE ONE (02:34)
[2016-06-16] MEDS: HYDROMORPHONE HCL 2 MG/ML SYRINGE IV PRN ×2 (02:39→12:10)
[2016-06-16] MEDS: SODIUM CHLORIDE 0.9% 1,000 ML IV SCH (06:08)
[2016-06-16 07:12] LABS: ABSOLUTE NEUTROPHIL COUNT 8.7 K/mm3 (1.8-7.7); BASO % 0.1 % (0.2-1.0); EOS % 0.2 % (0.9-2.9); HEMATOCRIT 37.6 % (32.0-52.0); IMM NEUT% 0.3 % (0-1); LYMPH # 0.4 (1.0-4.8); LYMPH % 3.9 % (15-45); MEAN CELL VOLUME 86.6 fl (80.0-94.0); MEAN CORPUSCULAR HGB CONC 34.6 g/dl (33.0-37.0); MEAN PLATELET VOLUME 10.6 fl (7.4-10.4); MONO # 0.8 (0.0-0.8); MONO % 7.6 % (4-12); NEUT % 87.9 % (43-75); PLATELET COUNT 221 K/mm3 (130-400); RED CELL DISTRIBUTION WIDTH 12.8 % (11.5-14.5)
[2016-06-16 07:32] LABS: CALCIUM 8.9 mg/dL (8.6-10.3)
--- NOTE | 2016-06-16 08:43 | PDOC43 ---
- Subjective Findings: POD1 after Left Ankle ORIF. Subjective: Reports Pain Tolerable - Objective Vital Signs Temperature 97.9 F 06/16/16 08:16 Pulse Rate 71 06/16/16 08:16 Respiratory Rate 15 06/16/16 08:16 Blood Pressure 142/62 06/16/16 08:16 O2 Saturation by Pulse Oximetry 95 06/16/16 08:16 Oxygen Delivery Method Room Air Oxygen Flow Rate 0 Laboratory 06/16/16 06:15 06/16/16 06:15 06/16/16 06:15 RBC 4.34 L Estimated GFR 81 H Intake and Output 06/14/16 06/15/16 06/16/16 23:59 23:59 23:59 Intake Total 1700 1470 Output Total 628 1117 Balance 1072 353 General: Afebrile Lungs: Normal Air Movement Skin: Normal Color, Warm, Dry - Left Lower Extremity Incision: Dressing Clean/Dry/Intact, No Drainage - Problems (1) Ankle fracture, bimalleolar, closed Qualifiers: Encounter type: initial encounter Laterality: left Qualifier Code: (S82.842A) Displaced bimalleolar fracture of left lower leg, initial encounter for closed fracture Status: Acute Assessment/Plan: HD#5 for closed L shaggy ankle fracture 1. Physical Therapy: NWB LLE, up in stockinette sling whenever in bed 2. Pain Control: adequate on current meds. Limit narcotics secondary to somnolence 3. DVT Prophylaxis: per hospitalist 4. Disposition: Plan for ORIF Sunday or per Dr. Jolly, then d/c to SNF for rehab 5. Medical Issues: stable, hospitalist primary - Additional Comments POD1 after Left Ankle ORIF. 1. Physical Therapy: NWB on left foot. Continue to elevate left foot/ankle in bed. 2. Pain Control: Multimodal pain control as needed. 3. DVT Prophylaxis: ASA 325mg daily. 4. Disposition: Plan for transfer to SNF Sunday or Sunday as possible for arranging. 5. Medical Issues: No new problem.
[2016-06-16] MEDS: ISOSORBIDE MONONITRATE 30 MG TAB.SR PO SCH ×2 (09:47→10:07)
[2016-06-16] MEDS: ASPIRIN (ENTERIC COATED) 325 MG TABLET.EC PO SCH ×2 (09:47→10:07)
[2016-06-16] MEDS: ATENOLOL 25 MG TABLET PO SCH (09:47)
[2016-06-16] MEDS: ATORVASTATIN CALCIUM 10 MG TABLET PO SCH (09:47)
--- NOTE | 2016-06-16 12:18 | PDOC43 ---
- Subjective Chief Complaint: Left ankle injury/bimalleolar fx Subjective: Reports Pain Tolerable, Reports Tolerating Diet Well, Reports Other (had urinary retention postop, perera placed but bothering patient and he is pulling on it) - Objective Vital Signs Temperature 97.9 F 06/16/16 08:16 Pulse Rate 71 06/16/16 08:16 Respiratory Rate 15 06/16/16 08:16 Blood Pressure 142/62 06/16/16 08:16 O2 Saturation by Pulse Oximetry 95 06/16/16 08:16 Oxygen Delivery Method Room Air Oxygen Flow Rate 0 Intake and Output 06/15/16 06/16/16 06/17/16 06:59 06:59 06:59 Intake Total 3170 Output Total 1745 Balance 1425 General: Alert, No Acute Distress HEENT: Mucous membr. moist/pink Lungs: Clear to Auscultation Bilaterally Cardiovascular: Regular Rate and Rhythm Abdomen: Soft, Normal Bowel Sounds, Non-Distended, No Tenderness Extremities: No Edema Wound: Dressing Clean/Dry/Intact Laboratory 06/16/16 06:15 06/16/16 06:15 06/16/16 06:15 RBC 4.34 L Estimated GFR 81 H Current Medications: Current meds reviewed in EMR. - Problems: Assessment/Plan (1) Ankle fracture, bimalleolar, closed Qualifiers: Encounter type: initial encounter Laterality: left Qualifier Code: (S82.842A) Displaced bimalleolar fracture of left lower leg, initial encounter for closed fracture Status: Acute Assessment/Plan: Will need ORIF when swelling goes down. Appreciate Ortho care, hope to repair soon. Pain control appears good currently. (2) Dementia Qualifiers: Dementia type: Alzheimer's disease Alzheimer's disease onset: unspecified onset Dementia behavioral disturbance: without behavioral disturbance Qualifier Code: (G30.9) Alzheimer's disease, unspecified Status: Chronic Assessment/Plan: Very poor score on SLUMS exam (). Care management looking into SNF placement (3) CAD (coronary artery disease) Qualifiers: Coronary Disease-Associated Artery/Lesion type: [place] artery [place] vs. transplanted heart: [place] heart Associated angina: with unspecified angina Qualifier Code: (I25.119) Atherosclerotic heart disease of [place] coronary artery with unspecified angina pectoris Status: Chronic Assessment/Plan: Stable, no complaints. (4) HTN (hypertension) Qualifiers: Hypertension type: essential hypertension Qualifier Code: (I10) Essential (primary) hypertension Status: Chronic Assessment/Plan: Some elevation-started atenolol on 06/13; still with some elevated BP, consider revision of med; However, some of this elevation may be due to pain from ankle fx. (5) Urinary retention with incomplete bladder emptying Status: Acute Assessment/Plan: multifactorial, likely due to BPH and anesthesia/narcotic-remove perera, bladder scan PRN, start Flomax VTE Prophylaxis: mechanical and ASA. Disposition: Anticipating SNF discharge in 1-2 days
[2016-06-16] MEDS: ASPIRIN (UNCOATED) 325 MG TABLET PO SCH (17:45)
[2016-06-16] MEDS: TAMSULOSIN HCL 0.4 MG CAPSULE.DR PO SCH (17:45)
[2016-06-16] MEDS: QUETIAPINE FUMARATE 25 MG TABLET PO SCH (20:59)
[2016-06-16] MEDS: GABAPENTIN 300 MG CAPSULE PO SCH (20:59)
[2016-06-16] MEDS: OXYCODONE/ACETAMINOPHEN 5/325 MG TABLET PO PRN (23:47)
[2016-06-17] MEDS: ATORVASTATIN CALCIUM 10 MG TABLET PO SCH (08:43)
[2016-06-17] MEDS: TAMSULOSIN HCL 0.4 MG CAPSULE.DR PO SCH (08:43)
[2016-06-17] MEDS: ASPIRIN (UNCOATED) 325 MG TABLET PO SCH (08:43)
[2016-06-17] MEDS: ATENOLOL 25 MG TABLET PO SCH (08:43)
[2016-06-17] MEDS: ISOSORBIDE MONONITRATE 30 MG TAB.SR PO SCH (08:44)
--- NOTE | 2016-06-17 10:08 | PDOC43 ---
- Subjective Findings: Doing well this AM, resting comfortably. No events overnight, no new issues. Subjective: Reports Pain Tolerable - Objective Vital Signs Temperature 98.1 F 06/17/16 07:50 Pulse Rate 66 06/17/16 07:50 Respiratory Rate 16 06/17/16 07:50 Blood Pressure 149/78 06/17/16 07:50 O2 Saturation by Pulse Oximetry 98 06/17/16 07:50 Oxygen Delivery Method Room Air Oxygen Flow Rate 0 Laboratory 06/16/16 06:15 06/16/16 06:15 Active Medication Orders Category Date Time Status Acetaminophen [Tylenol] Med 06/08/16 15:11 Active 650 mg PO Q6H PRN Aspirin (Uncoated) Med 06/16/16 13:00 Active 325 mg PO DAILY Atenolol [Tenormin] Med 06/13/16 13:45 Active 25 mg PO DAILY Atorvastatin Calcium [Lipitor] Med 06/09/16 09:00 Active 10 mg PO DAILY Gabapentin [Neurontin] Med 06/08/16 21:00 Active 300 mg PO BEDTIME Hydrocodone Bit/Acetaminophen [[place] 5/325] Med 06/11/16 16:14 Active 1 tab PO Q4H PRN Hydromorphone HCl [Dilaudid] Med 06/15/16 17:48 Active 1 - 2 mg IV Q4H PRN Isosorbide Mononitrate [Imdur] Med 06/09/16 09:00 Active 30 mg PO DAILY Lip [place] [Blistex] Med 06/08/16 15:11 Active 1 each TP PRN PRN Magnesium Hydroxide [Milk of Magnesia] Med 06/08/16 15:11 Active 30 ml PO DAILY PRN Menthol/Cetylpyridinium [Cepacol] Med 06/08/16 15:11 Active 1 each PO PRN PRN Nitroglycerin [Nitrostat] Med 06/08/16 15:13 Active 0.4 mg SL Q5M PRN Ondansetron 4 mg/2ml Vial [Zofran] Med 06/08/16 15:13 Active 4 mg IV Q3H PRN Oxycodone HCl/Acetaminophen [Percocet 5/325] Med 06/15/16 17:48 Active 1 - 2 tab PO Q4H PRN Quetiapine Fumarate [Seroquel] Med 06/11/16 21:45 Active 12.5 mg PO BEDTIME Sodium Chloride 0.9% 100 ml Med 06/08/16 15:11 Active IV PRN Sodium Chloride 0.9% Flush [Normal Saline 10ml Flush] Med 06/16/16 14:27 Active 10 ml IV PRN PRN Sodium Chloride 0.9% Flush [Normal Saline 10ml Flush] Med 06/16/16 17:00 Active 10 ml IV Q8HR Tamsulosin HCl [Flomax] Med 06/16/16 12:15 Active 0.4 mg PO DAILY Intake and Output 06/15/16 06/16/16 06/17/16 23:59 23:59 23:59 Intake Total 2383 2723 100 Output Total 925.76 1717 274 Balance 1457.24 1006 -174 General: Afebrile, No Acute Distress Skin: Normal Color, Warm, Dry Neurological: Alert - Left Lower Extremity Incision: Dressing Clean/Dry/Intact, No Drainage Motor: Extensor Hallucis Longus: 5/5, Tibialis Anterior: 5/5, Gastrocnemius: 5/5 , Peroneals: 5/5, Quadriceps: 5/5 Gross Sensation to Light Touch: Present: Deep Peroneal Nerve, Superficial Peroneal Nerve, Medial Plantar Nerve, Lateral Plantar Nerve, Sural Nerve, Saphenous Nerve Capillary Refill: < 3 Seconds - Problems (1) Ankle fracture, bimalleolar, closed Qualifiers: Encounter type: initial encounter Laterality: left Qualifier Code: (S82.842A) Displaced bimalleolar fracture of left lower leg, initial encounter for closed fracture Status: Acute Assessment/Plan: POD#2 ORIF L shaggy ankle fx 1. Physical Therapy: NWB LLE, gait training with boot/walker 2. Pain Control: adequate on current meds. Limit narcotics secondary to somnolence 3. DVT Prophylaxis: per hospitalist 4. Disposition: SNF for rehab Sunday 5. Medical Issues: stable, hospitalist primary Young Jolly MD
--- NOTE | 2016-06-17 15:25 | PDOC43 ---
- Subjective Chief Complaint: Left ankle injury/bimalleolar fx Patient awake, feeling tired. Ready to get out of here. He has no complaints Subjective: Reports Pain Tolerable, Reports Tolerating Diet Well, Reports Bowel Movement, Reports Urinating Without Difficulty, Denies Shortness of Breath, Denies Cough, Denies Chest Pain, Denies Abdominal Pain, Denies Nausea, Denies Vomiting - Objective Vital Signs Temperature 98.0 F 06/17/16 12:32 Pulse Rate 56 06/17/16 12:32 Respiratory Rate 16 06/17/16 12:32 Blood Pressure 103/58 06/17/16 12:32 O2 Saturation by Pulse Oximetry 97 06/17/16 12:32 Oxygen Delivery Method Room Air Oxygen Flow Rate 0 Intake and Output 06/15/16 06/16/16 06/17/16 23:59 23:59 23:59 Intake Total 2383 2723 300 Output Total 925.76 1717 274 Balance 1457.24 1006 26 General: Alert, Oriented x3, Cooperative, No Acute Distress HEENT: Atraumatic, Mucous membr. moist/pink Lungs: Clear to Auscultation Bilaterally, Normal Air Movement Cardiovascular: Regular Rate and Rhythm, Normal S1, Normal S2 Abdomen: Soft, Non-Distended, No Rigid, No Tenderness, No Rebounding Neurological: Normal Speech, Other (hard of hearing) Psych/Mental Status: Normal Mood Laboratory 06/16/16 06:15 06/16/16 06:15 Current Medications: Current meds reviewed in EMR. - Problems: Assessment/Plan (1) Ankle fracture, bimalleolar, closed Qualifiers: Encounter type: initial encounter Laterality: left Qualifier Code: (S82.842A) Displaced bimalleolar fracture of left lower leg, initial encounter for closed fracture Status: Acute Assessment/Plan: Will need ORIF when swelling goes down. Appreciate Ortho care, hope to repair soon. Pain control appears good currently. (2) Urinary retention with incomplete bladder emptying Status: Chronic Assessment/Plan: multifactorial, likely due to BPH and anesthesia/narcotic-remove perera, bladder scan PRN, start Flomax (3) Dementia Qualifiers: Dementia type: Alzheimer's disease Alzheimer's disease onset: unspecified onset Dementia behavioral disturbance: without behavioral disturbance Qualifier Code: (G30.9) Alzheimer's disease, unspecified Status: Chronic Assessment/Plan: Very poor score on SLUMS exam (). Care management looking into SNF placement (4) CAD (coronary artery disease) Qualifiers: Coronary Disease-Associated Artery/Lesion type: [place] artery [place] vs. transplanted heart: [place] heart Associated angina: with unspecified angina Qualifier Code: (I25.119) Atherosclerotic heart disease of [place] coronary artery with unspecified angina pectoris Status: Chronic Assessment/Plan: Stable, no complaints. (5) HTN (hypertension) Qualifiers: Hypertension type: essential hypertension Qualifier Code: (I10) Essential (primary) hypertension Status: Chronic Assessment/Plan: Some elevation-started atenolol on 06/13; still with some elevated BP, consider revision of med; However, some of this elevation may be due to pain from ankle fx. (6) Lumbar radiculopathy, chronic Status: Chronic Assessment/Plan: Stable VTE Prophylaxis: mechanical and ASA. Disposition: Anticipating SNF discharge 06/19/2016. Jose Miguel Michel
[2016-06-17] MEDS: QUETIAPINE FUMARATE 25 MG TABLET PO SCH (20:51)
[2016-06-17] MEDS: GABAPENTIN 300 MG CAPSULE PO SCH (20:51)
[2016-06-17] MEDS: OXYCODONE/ACETAMINOPHEN 5/325 MG TABLET PO PRN (20:51)
--- NOTE | 2016-06-18 08:53 | PDOC43 ---
- Subjective Chief Complaint: Left ankle injury/bimalleolar fx Patient awake and alert, says he is not feeling well but denies any symptoms; no chest pain, abdominal pain, cough, shortness of breath. Ankle is not painful Subjective: Reports Pain Tolerable, Reports Tolerating Diet Well, Reports Adequate Oral Intake, Reports Urinating Without Difficulty, Denies Shortness of Breath, Denies Cough, Denies Chest Pain, Denies Abdominal Pain, Denies Nausea, Denies Vomiting - Objective Vital Signs Temperature 98.1 F 06/18/16 07:00 Pulse Rate 65 06/18/16 07:00 Respiratory Rate 10 06/18/16 07:00 Blood Pressure 163/79 06/18/16 07:00 O2 Saturation by Pulse Oximetry 98 06/18/16 07:00 Oxygen Delivery Method Room Air Oxygen Flow Rate 0 Intake and Output 06/16/16 06/17/16 06/18/16 23:59 23:59 23:59 Intake Total 2723 537 260 Output Total 1717 274 400 Balance 1006 263 -140 General: Alert, Cooperative, No Acute Distress HEENT: Atraumatic, EOMI, Other (slightly dry mucus membranes) Lungs: Clear to Auscultation Bilaterally, Normal Air Movement Cardiovascular: Regular Rate and Rhythm, Normal S1, Normal S2 Abdomen: Soft, Mild Distention, No Rigid, No Tenderness, No Rebounding Extremities: Other (LLE cast), No Cyanosis, No Edema, No Tenderness Neurological: Normal Speech Psych/Mental Status: Normal Mood Laboratory 06/16/16 06:15 06/16/16 06:15 Current Medications: Current meds reviewed in EMR. - Problems: Assessment/Plan (1) Ankle fracture, bimalleolar, closed Qualifiers: Encounter type: subsequent encounter Laterality: left Qualifier Code: () Status: Acute Assessment/Plan: Will need ORIF when swelling goes down, performed 06/15/2016 Appreciate Ortho care. Pain control appears good currently. POD 3 (2) Urinary retention with incomplete bladder emptying Status: Chronic Assessment/Plan: multifactorial, likely due to BPH and anesthesia/narcotic-remove perera, bladder scan PRN, start Flomax (3) Dementia Qualifiers: Dementia type: Alzheimer's disease Alzheimer's disease onset: unspecified onset Dementia behavioral disturbance: without behavioral disturbance Qualifier Code: (G30.9) Alzheimer's disease, unspecified Status: Chronic Assessment/Plan: Very poor score on SLUMS exam (). Care management looking into SNF placement (4) CAD (coronary artery disease) Qualifiers: Coronary Disease-Associated Artery/Lesion type: [place] artery [place] vs. transplanted heart: [place] heart Associated angina: with unspecified angina Qualifier Code: (I25.119) Atherosclerotic heart disease of [place] coronary artery with unspecified angina pectoris Status: Chronic Assessment/Plan: Stable, no complaints. (5) HTN (hypertension) Qualifiers: Hypertension type: essential hypertension Qualifier Code: (I10) Essential (primary) hypertension Status: Chronic Assessment/Plan: Some elevation-started atenolol on 06/13; still with some elevated BP, consider revision of med; However, some of this elevation may be due to pain from ankle fx. (6) Lumbar radiculopathy, chronic Status: Chronic Assessment/Plan: Stable VTE Prophylaxis: mechanical and ASA. Disposition: Anticipating SNF discharge 06/19/2016. Jose Miguel Michel
[2016-06-18] MEDS: ASPIRIN (UNCOATED) 325 MG TABLET PO SCH (09:24)
[2016-06-18] MEDS: ISOSORBIDE MONONITRATE 30 MG TAB.SR PO SCH (09:24)
[2016-06-18] MEDS: TAMSULOSIN HCL 0.4 MG CAPSULE.DR PO SCH (09:24)
[2016-06-18] MEDS: ATORVASTATIN CALCIUM 10 MG TABLET PO SCH (09:24)
[2016-06-18] MEDS: ATENOLOL 25 MG TABLET PO SCH (09:24)
--- NOTE | 2016-06-18 09:54 | PDOC43 ---
- Subjective Findings: Patient doing fine with PT, improved ability to follow weightbearing restrictions, no new complaints, no acute events. Subjective: Reports Pain Tolerable - Objective Vital Signs Temperature 98.1 F 06/18/16 07:00 Pulse Rate 65 06/18/16 07:00 Respiratory Rate 10 06/18/16 07:00 Blood Pressure 163/79 06/18/16 07:00 O2 Saturation by Pulse Oximetry 98 06/18/16 07:00 Oxygen Delivery Method Room Air Oxygen Flow Rate 0 Laboratory 06/16/16 06:15 06/16/16 06:15 Active Medication Orders Category Date Time Status Acetaminophen [Tylenol] Med 06/08/16 15:11 Active 650 mg PO Q6H PRN Aspirin (Uncoated) Med 06/16/16 13:00 Active 325 mg PO DAILY Atenolol [Tenormin] Med 06/13/16 13:45 Active 25 mg PO DAILY Atorvastatin Calcium [Lipitor] Med 06/09/16 09:00 Active 10 mg PO DAILY Gabapentin [Neurontin] Med 06/08/16 21:00 Active 300 mg PO BEDTIME Hydrocodone Bit/Acetaminophen [[place] 5/325] Med 06/11/16 16:14 Active 1 tab PO Q4H PRN Hydromorphone HCl [Dilaudid] Med 06/15/16 17:48 Active 1 - 2 mg IV Q4H PRN Isosorbide Mononitrate [Imdur] Med 06/09/16 09:00 Active 30 mg PO DAILY Lip [place] [Blistex] Med 06/08/16 15:11 Active 1 each TP PRN PRN Magnesium Hydroxide [Milk of Magnesia] Med 06/08/16 15:11 Active 30 ml PO DAILY PRN Menthol/Cetylpyridinium [Cepacol] Med 06/08/16 15:11 Active 1 each PO PRN PRN Nitroglycerin [Nitrostat] Med 06/08/16 15:13 Active 0.4 mg SL Q5M PRN Ondansetron 4 mg/2ml Vial [Zofran] Med 06/08/16 15:13 Active 4 mg IV Q3H PRN Oxycodone HCl/Acetaminophen [Percocet 5/325] Med 06/15/16 17:48 Active 1 - 2 tab PO Q4H PRN Quetiapine Fumarate [Seroquel] Med 06/11/16 21:45 Active 12.5 mg PO BEDTIME Sodium Chloride 0.9% 100 ml Med 06/08/16 15:11 Active IV PRN Sodium Chloride 0.9% Flush [Normal Saline 10ml Flush] Med 06/16/16 14:27 Active 10 ml IV PRN PRN Sodium Chloride 0.9% Flush [Normal Saline 10ml Flush] Med 06/16/16 17:00 Active 10 ml IV Q8HR Tamsulosin HCl [Flomax] Med 06/16/16 12:15 Active 0.4 mg PO DAILY Intake and Output 06/16/16 06/17/16 06/18/16 23:59 23:59 23:59 Intake Total 2725 537 260 Output Total 1717 274 400 Balance 1006 263 -140 General: Afebrile, No Acute Distress Skin: Normal Color, Warm, Dry - Left Lower Extremity Incision: Dressing Clean/Dry/Intact, No Drainage Motor: Extensor Hallucis Longus: 5/5, Tibialis Anterior: 5/5, Gastrocnemius: 5/5 , Peroneals: 5/5, Quadriceps: 5/5 Gross Sensation to Light Touch: Present: Deep Peroneal Nerve, Superficial Peroneal Nerve, Medial Plantar Nerve, Lateral Plantar Nerve, Sural Nerve, Saphenous Nerve Capillary Refill: < 3 Seconds - Problems (1) Ankle fracture, bimalleolar, closed Qualifiers: Encounter type: subsequent encounter Laterality: left Status: Acute Assessment/Plan: POD#3 ORIF L shaggy ankle fx 1. Physical Therapy: NWB LLE, gait training with boot/walker 2. Pain Control: adequate on current meds. Limit narcotics secondary to somnolence 3. DVT Prophylaxis: per hospitalist 4. Disposition: SNF for rehab Sunday 5. Medical Issues: stable, hospitalist primary Young Jolly MD
[2016-06-18] MEDS: HYDROCODONE/ACETAMINOPHEN 5/325MG TABLET PO PRN (21:45)
[2016-06-18] MEDS: QUETIAPINE FUMARATE 25 MG TABLET PO SCH (21:45)
[2016-06-18] MEDS: GABAPENTIN 300 MG CAPSULE PO SCH (21:45)
--- NOTE | 2016-06-19 08:41 | PDOC5 ---
ADMIT DATE: DISCHARGE DATE: 06/19/16 ADMISSION DIAGNOSES: right ankle fracture PROCEDURES PERFORMED THIS HOSPITALIZATION: ORIF right ankle 06/[address] Jolly CONSULTATIONS: Dr. Jolly, OT/PT HOSPITAL COURSE: This is a 81 year old who fractured his right ankle while cutting wood. He was observed for several days while the swelling improved, he had surgery, progressed with therapies, and is stable to discharge to SNF for rehab. - Exam Vital Signs Temperature 98.1 F 06/19/16 02:00 Pulse Rate 65 06/19/16 02:00 Respiratory Rate 16 06/19/16 02:00 Blood Pressure 129/81 06/19/16 02:00 O2 Saturation by Pulse Oximetry 95 06/19/16 02:00 Oxygen Delivery Method Room Air Oxygen Flow Rate 0 General: Alert, Cooperative, No Oriented x3, No Acute Distress HEENT: Mucous membr. moist/pink Lungs: Clear to Auscultation Bilaterally Cardiovascular: Regular Rate and Rhythm Abdomen: Soft, Normal Bowel Sounds, No Tenderness, No Masses Extremities: Normal Pulses (on left), Other (right toes with brisk cap refill), No Edema Skin: Normal Color Neurological: Normal Speech Psych/Mental Status: Normal Mood - Results Laboratory 06/16/16 06:15 06/16/16 06:15 - Problems:Assessment/Plan (1) Ankle fracture, bimalleolar, closed Qualifiers: Encounter type: subsequent encounter Laterality: left Status: Acute Assessment/Plan: ORIF performed 06/15/2016 Appreciate Ortho care. Doing well on POD #4, discharge to SNF. (2) Dementia Qualifiers: Dementia type: Alzheimer's disease Alzheimer's disease onset: unspecified onset Dementia behavioral disturbance: without behavioral disturbance Qualifier Code: (G30.9) Alzheimer's disease, unspecified Status: Chronic Assessment/Plan: Very poor score on SLUMS exam (). Will likely need long-term placement (3) CAD (coronary artery disease) Qualifiers: Coronary Disease-Associated Artery/Lesion type: [place] artery [place] vs. transplanted heart: [place] heart Associated angina: with unspecified angina Qualifier Code: (I25.119) Atherosclerotic heart disease of [place] coronary artery with unspecified angina pectoris Status: Chronic Assessment/Plan: Stable, no complaints. (4) HTN (hypertension) Qualifiers: Hypertension type: essential hypertension Qualifier Code: (I10) Essential (primary) hypertension Status: Chronic Assessment/Plan: well controlled now - Disposition: Disposition: discharge to [facility] today - Discharge Plan Additional Instructions: PROCEDURE: LEFT ANKLE OPEN REDUCTION AND INTERNAL FIXATION 1.) DRESSINGS: leave dressings in place, keep splint clean and dry at all times. 2.) ACTIVITY: crutches at all times, nonweightbearing on right leg. Keep leg elevated as much as possible for the first 3-4 days after surgery to limit the risk of soft tissue complications. 3.) MEDICATIONS: Percocet as needed for pain, transitioning to Tylenol as pain and swelling subside. Colace as needed for constipation. 4.) FOLLOWUP: Postoperative appointment with Dr. Jolly about two weeks after surgery. Call [phone] to arrange your appointment time and location. 5.) QUESTIONS/CONCERNS: Contact my office at [phone] with any questions or concerns. Call [phone] or go to ED for any emergencies. Young Jolly MD Prescriptions: Oxycodone HCl/Acetaminophen [PERCOCET 5/325 MG TABLET (SHF)] 1 - 2 tab PO Q4H PRN #80 tablet PRN Reason: Pain (Moderate) Follow-Up: Leroy Shah MD [Primary Care Provider] - Condition: Good Disposition: Residential Facility
--- NOTE | 2016-06-19 08:48 | PDOC43 ---
- Subjective Findings: POD4 after Left ankle ORIF. Doing well and without new complaint. Subjective: Reports Pain Tolerable - Objective Vital Signs Temperature 98.0 F 06/19/16 08:35 Pulse Rate 74 06/19/16 08:35 Respiratory Rate 20 06/19/16 08:35 Blood Pressure 140/80 06/19/16 08:35 O2 Saturation by Pulse Oximetry 96 06/19/16 08:35 Oxygen Delivery Method Room Air Oxygen Flow Rate 0 Laboratory 06/16/16 06:15 06/16/16 06:15 Active Medication Orders Category Date Time Status Acetaminophen [Tylenol] Med 06/08/16 15:11 Active 650 mg PO Q6H PRN Aspirin (Enteric Coated) [Ecotrin] Med 06/19/16 09:00 Active 325 mg PO DAILY Atenolol [Tenormin] Med 06/13/16 13:45 Active 25 mg PO DAILY Atorvastatin Calcium [Lipitor] Med 06/09/16 09:00 Active 10 mg PO DAILY Gabapentin [Neurontin] Med 06/08/16 21:00 Active 300 mg PO BEDTIME Hydrocodone Bit/Acetaminophen [[place] 5/325] Med 06/11/16 16:14 Active 1 tab PO Q4H PRN Hydromorphone HCl [Dilaudid] Med 06/15/16 17:48 Active 1 - 2 mg IV Q4H PRN Isosorbide Mononitrate [Imdur] Med 06/09/16 09:00 Active 30 mg PO DAILY Lip [place] [Blistex] Med 06/08/16 15:11 Active 1 each TP PRN PRN Magnesium Hydroxide [Milk of Magnesia] Med 06/08/16 15:11 Active 30 ml PO DAILY PRN Menthol/Cetylpyridinium [Cepacol] Med 06/08/16 15:11 Active 1 each PO PRN PRN Nitroglycerin [Nitrostat] Med 06/08/16 15:13 Active 0.4 mg SL Q5M PRN Ondansetron 4 mg/2ml Vial [Zofran] Med 06/08/16 15:13 Active 4 mg IV Q3H PRN Oxycodone HCl/Acetaminophen [Percocet 5/325] Med 06/15/16 17:48 Active 1 - 2 tab PO Q4H PRN Quetiapine Fumarate [Seroquel] Med 06/11/16 21:45 Active 12.5 mg PO BEDTIME Sodium Chloride 0.9% 100 ml Med 06/08/16 15:11 Active IV PRN Sodium Chloride 0.9% Flush [Normal Saline 10ml Flush] Med 06/16/16 14:27 Active 10 ml IV PRN PRN Sodium Chloride 0.9% Flush [Normal Saline 10ml Flush] Med 06/16/16 17:00 Active 10 ml IV Q8HR Tamsulosin HCl [Flomax] Med 06/16/16 12:15 Active 0.4 mg PO DAILY Intake and Output 06/17/16 06/18/16 06/19/16 23:59 23:59 23:59 Intake Total 537 260 440 Output Total 274 400 400 Balance 263 -140 40 General: Afebrile Lungs: Normal Air Movement Skin: Normal Color, Warm, Dry - Left Lower Extremity Incision: Dressing Clean/Dry/Intact Motor: Extensor Hallucis Longus: 5/5, Tibialis Anterior: 5/5, Quadriceps: 4/5 Gross Sensation to Light Touch: Present: Deep Peroneal Nerve, Superficial Peroneal Nerve - Problems (1) Ankle fracture, bimalleolar, closed Qualifiers: Encounter type: subsequent encounter Laterality: left Status: Acute Assessment/Plan: POD#3 ORIF L shaggy ankle fx 1. Physical Therapy: NWB LLE, gait training with boot/walker 2. Pain Control: adequate on current meds. Limit narcotics secondary to somnolence 3. DVT Prophylaxis: per hospitalist 4. Disposition: SNF for rehab Sunday 5. Medical Issues: stable, hospitalist primary Young Jolly MD - Additional Comments POD4 after Left Ankle ORIF. 1. Physical Therapy: NWB on left foot. Continue to elevate left foot/ankle in bed. 2. Pain Control: Multimodal pain control as needed. 3. DVT Prophylaxis: ASA 325mg daily. 4. Disposition: Plan for transfer to SNF today. 5. Medical Issues: No new problem.
[2016-06-19] MEDS: ATORVASTATIN CALCIUM 10 MG TABLET PO SCH (08:56)
[2016-06-19] MEDS: ISOSORBIDE MONONITRATE 30 MG TAB.SR PO SCH (08:56)
[2016-06-19] MEDS: ATENOLOL 25 MG TABLET PO SCH (08:56)
[2016-06-19] MEDS: TAMSULOSIN HCL 0.4 MG CAPSULE.DR PO SCH (08:56)
[2016-06-19] MEDS ORDERED: ASPIRIN (ENTERIC COATED) 325 MG TABLET.EC PO SCH (09:00)
[2016-06-19 13:39] VITALS: BP 150/86
--- NOTE | 2016-06-20 11:48 | OP ---
David AMAYA : 1935 [id number] DATE OF PROCEDURE: June 15, 2016 PREOPERATIVE DIAGNOSIS: Left bimalleolar ankle fracture. POSTOPERATIVE DIAGNOSIS: Left bimalleolar ankle fracture. PROCEDURE PERFORMED: LEFT ANKLE OPEN REDUCTION INTERNAL FIXATION. SURGEON: Young Jolly M.D. [employer] ATTENDANT: Barbara Bowling ANESTHESIA: Marci ValdovinosNNeel ESTIMATED BLOOD LOSS: 5 mL FLUIDS REPLACED: 1,000 mL of crystalloid. TOURNIQUET TIME: 45 minutes at 250 mmHg. IMPLANTS: Synthes four hole distal fibular plate with 2.7 mm locking screws distally and 3.5 mm cortical screws proximally as well as a 3.5 mm lag screw in the fibular fracture and two 4.0 cannulated screws in the medial malleolus. DRAINS: None. INDICATIONS: This is an 81-year-old gentleman who lives alone and fell on June 08, 2016 sustaining an injury to his left ankle. He was brought to the emergency department and was ultimately admitted by the hospitalist service secondary to medical comorbidities including dementia which precluded his ability to safely follow weightbearing restrictions. His leg was elevated during his time in the hospital to minimize swelling and when his swelling had resolved to an adequate degree. He was taken to the operating room for an open reduction internal fixation in order to restore stability to his ankle mortise. Risks, benefits and alternatives were discussed with the patient ahead of time and he elected to proceed. In addition, the hospitalist provided a two provider consent secondary to concerns about the patient's ability to meaningfully consent. DESCRIPTION OF PROCEDURE: The patient was identified in the preoperative holding area where he was marked with indelible marker by the operating surgeon. He was taken to the operating room where he was placed in a supine position on the operating room table. General anesthesia was induced, perioperative antibiotics were administered. A well padded pre-calibrated nonsterile tourniquet was placed on his left upper thigh. He was prepped and draped in the usual sterile fashion for surgery. He received perioperative antibiotics. An operative time out was performed and confirmed by all members of the operative team. The patient's leg was elevated and exsanguinated using an Esmarch bandage and the tourniquet was inflated to 250 mmHg. A longitudinal incision was made over the distal portion of his fibula with careful dissection carried down to the lateral border of the fibula and a subperiosteal dissection was performed. Neurovascular structures were protected. A provisional reduction was obtained using a lobster claw fracture reduction forceps and images were obtained in the AP and lateral projections which showed adequacy of our reduction. A single lag screw was placed obtaining interfragmentary compression and then a lateral fibular plate was placed with locking screws distally, secondary to a low profile as well as excellent their fixation in soft bone and cortical screws proximally. The wound was copiously irrigated. Attention was turned to the medial side of the ankle where two guide wires for 4.0 cannulated screws were placed percutaneously up through the medial malleolus and into the distal tibial metaphysis. When we were satisfied with our reduction with the placement of the wires we made liseth incisions around these wires, drilled over the wires and placed two 4.0 cannulated screws obtaining interfragmentary compression of the medial malleolus fracture. The wounds were copiously irrigated with sterile saline. The lateral incision was closed in layers and the skin was closed with #4-0 Nylon. A sterile dressing of Xeroform, fluffs, web roll and an NAKIA bandage was applied. The patient was placed into an L&U plaster splint held in place with an NAKIA and the tourniquet was deflated. The drapes were removed and the patient was awakened from his anesthesia and extubated in the operating room without difficulty. He was transferred to a stretcher and taken postoperatively to the postanesthesia care unit in stable condition. There were no observed intraoperative complications during this procedure. Job [id number] Cc: [email or web address]
== END 2016-06-19 15:11 ==
LOC: ED 10:51 → INTOOBSV 13:30 → UNDOADMOB 13:30 → MS 13:30 → UNDOADMOB 15:11 → SDC 06-10 16:29 → MS 06-15 15:37 → SDC 06-15 15:37 → MS 06-15 16:28 → SDC 06-15 16:28 → OBSVTOIN 06-15 16:29 → INTOOBSV 06-15 16:29 → MS 06-15 16:29 → SDC 06-15 17:14 → MS 06-15 17:14 → SDC 06-19 15:11
PROVIDERS: ATTEND Orthopaedic Surgery
PROC: 0QSK04Z Reposition Left Fibula with Internal Fixation Device, Open Approach (ICD-10-PCS; principal; 2016-06-15)
PROC: 0QSH04Z Reposition Left Tibia with Internal Fixation Device, Open Approach (ICD-10-PCS; 2016-06-15)
DX: S82.842A Displaced bimalleolar fracture of left lower leg, initial encounter for closed fracture (principal); G30.9 Alzheimer's disease, unspecified; I25.119 Atherosclerotic heart disease of native coronary artery with unspecified angina pectoris; I10 Essential (primary) hypertension; R55 Syncope and collapse; Z79.82 Long term (current) use of aspirin; R33.8 Other retention of urine; M54.16 Radiculopathy, lumbar region; E78.5 Hyperlipidemia, unspecified; H83.3X9 Noise effects on inner ear, unspecified ear; Z95.1 Presence of aortocoronary bypass graft; Z88.5 Allergy status to narcotic agent; W18.30XA Fall on same level, unspecified, initial encounter; Z60.2 Problems related to living alone
CPT/HCPCS: 85027 ×2; 85025; 80048 ×3; 81003; 84484; 36415 ×3; 73610; 73600; 76000; 97164; 97530 ×11; 97162; 97168; 97166; 99284 ×2; 27814; A6402; A6216 ×2; A9270 ×82; J1170 ×2; J2795; J2250; J7120; J7030 ×7; J0690; G0378 ×2; G8987; G8988; G8978; G8979

== ENCOUNTER 2016-08-27 18:41 | Emergency (ER) | payer MEDICARE, OTHER ==
[2016-08-27 20:08] LABS: ABSOLUTE NEUTROPHIL COUNT 3.7 K/mm3 (1.8-7.7); BASO % 0.3 % (0.2-1.0); EOS # 0.1 (0.0-0.5); EOS % 1.9 % (0.9-2.9); HEMATOCRIT 39.4 % (32.0-52.0); HEMOGLOBIN 13.1 gm/l (14.0-18.0); IMM NEUT% 0.2 % (0-1); LYMPH # 1.8 (1.0-4.8); LYMPH % 29.5 % (15-45); MEAN CELL VOLUME 90.6 fl (80.0-94.0); MEAN CORPUSCULAR HEMOGLOBIN 30.1 pg (27.0-31.0); MEAN CORPUSCULAR HGB CONC 33.2 g/dl (33.0-37.0); MEAN PLATELET VOLUME 11.4 fl (7.4-10.4); MONO # 0.5 (0.0-0.8); MONO % 7.9 % (4-12); NEUT % 60.2 % (43-75); PLATELET COUNT 212 K/mm3 (130-400); RED CELL DISTRIBUTION WIDTH 13.4 % (11.5-14.5)
[2016-08-27 20:22] LABS: ALB/GLOB RATIO 1.3 (>1.0); ALBUMIN 4.4 gm/dL (3.5-5.7)
[2016-08-27 23:15] LABS: TROPONIN I 0.01 ng/ml (0.0-0.06)
[2016-08-27 23:19] LABS: CKMB ISOENZYME 1.1 ng/ml (0.6-6.3)
--- NOTE | 2016-08-28 07:51 | RAD ---
CHEST-AP BEDSIDE HISTORY: Chest pain. COMPARISONS: 03/21/2016. FINDINGS: There is evidence of prior median sternotomy. The heart size is stable. There is no gross consolidation, effusion or pneumothorax visualized. The hilar and mediastinal structures are intact. IMPRESSION: 1. Prior median sternotomy. 2. An otherwise negative portable chest.
== END 2016-08-28 01:24 | disposition home or self-care (01) ==
LOC: ED 18:41
DX: R07.9 Chest pain, unspecified (principal); M79.602 Pain in left arm; R11.10 Vomiting, unspecified; I25.2 Old myocardial infarction; G30.9 Alzheimer's disease, unspecified; F02.80 Dementia in other diseases classified elsewhere, unspecified severity, without behavioral disturbance, psychotic disturbance, mood disturbance, and anxiety